=== PATIENT | female | born 1945 | race Caucasian/White ===

== ENCOUNTER 2016-10-13 12:26 | Inpatient (IN) | payer MEDICARE, BC ==
[~2016-10-13] VITALS: Ht 177.8 cm; Wt 52.0 kg
[2016-10-13] VITALS (8 sets, daily range): BP systolic 160–187; BP diastolic 74–89; PULSE 75–80; RESP 16–18; TEMP 97.2–97.9; O2SAT 95–98
[2016-10-13] MEDS ORDERED: SODIUM CHLORIDE 0.9% FLUSH 5 ML FLUSH IVF PRN ×2 (13:15→14:45)
[2016-10-13 13:28] LABS: AUTOMATED NEUTROPHIL # 5.8 TH/MM3 (1.8-7.7); BASOPHIL # 0.1 TH/MM3 (0-0.2); BASOPHIL % 0.9 % (0.0-2.0); EOSINOPHIL # 0.1 TH/MM3 (0-0.4); EOSINOPHIL % 0.6 % (0.0-4.0); HEMO FLAGS DIFF FINAL; LYMPH % 23.6 % (9.0-44.0); MEAN CORPUSCULAR HEMOGLOBIN 31.4 PG (27.0-34.0); MEAN CORPUSCULAR HGB CONC 33.8 % (32.0-36.0); MONO % 7.9 % (0.0-8.0); PLATELET COUNT 241 TH/MM3 (150-450); RED BLOOD COUNT 4.73 MIL/MM3 (4.00-5.30); WHITE BLOOD COUNT 8.6 TH/MM3 (4.0-11.0)
[2016-10-13 13:37] LABS: APTT (PATIENT) 28.7 SEC (24.3-30.1); INTERNATIONAL NORMALIZED RATIO 1.3 RATIO
[2016-10-13 13:44] LABS: ANION GAP 8 MEQ/L (5-15); BICARBONATE 24.8 MEQ/L (21.0-32.0); BLOOD UREA NITROGEN 13 MG/DL (7-18); CHLORIDE 107 MEQ/L (98-107); GLOMERULAR FILTRATION RATE 88 ML/MIN (>89); POTASSIUM 3.8 MEQ/L (3.5-5.1); SODIUM (NA) 140 MEQ/L (136-145)
[2016-10-13] MEDS ORDERED: TRAZ50TA12 PO (13:47)
--- NOTE | 2016-10-13 13:49 | PD ---
HPI Chief Complaint: Neuro Symptoms/ Deficits Time Seen by Provider: 13:12 Travel History International Travel<30 days: No Contact w/Intl Traveler<30days: [place] Traveled to: [place] Traveled to known affect area: No History of Present Illness HPI Patient is a 71-year-old female who presents the emergency department with complaint of weakness. Patient was apparently traveling on a cruise approximate 2 weeks ago with her sister when she had a "stroke". Patient states that she developed left arm weakness. She was seen by a physician on the cruise ship who did blood work and told her that she had a stroke. Patient does not describe having any neuro imaging. No medication adjustment was made. Patient states that her left upper extremity has been somewhat weak ever since her cruise. Apparently over the last day patient has had worsening left upper extremity weakness and now left lower extremity weakness which is new. Sister notes that patient is chronically on opioids for her back pain and believes patient may be taking too many of these. Patient denies doing so. PFSH Past Medical History Blood Disorders: No Anxiety: Yes Depression: Yes Cancer: No Cardiovascular Problems: Yes Cerebrovascular Accident: Yes Diabetes: No Diminished Hearing: No Endocrine: No Gastrointestinal Disorders: Yes GERD: Yes Genitourinary: No Hypertension: Yes Immune Disorder: No Implanted Vascular Access Dvce: Yes Musculoskeletal: Yes (chronic back pain ) Neurologic: Yes Psychiatric: Yes Reproductive: No Respiratory: No Immunizations Current: No ?: Not Menopausal: Yes : 0 Para: 0 Miscarriage: 0 : 0 Past Surgical History Abdominal Surgery: Yes (appendectomy) Gynecologic Surgery: Yes (hysterectomy) Hysterectomy: Yes Thoracic Surgery: Yes (Back and Neck surgery with Titanium Clarence placed) Other Surgery: Yes (MORPHINE PUMP IMPLANTED AND REMOVED) Social History Alcohol Use: No Tobacco Use: Yes Substance Use: No Allergies-Medications (Allergen,Severity, Reaction): Coded Allergies: No Known Allergies (Unverified , 10/13/16) Reported Meds & Prescriptions Reported Meds & Active Scripts Active Reported Trazodone (Trazodone HCl) 50 Mg Tab 50 Mg PO HS Review of Systems Except as stated in HPI: all other systems reviewed are Neg Physical Exam Narrative GENERAL: Elderly female in no acute distress SKIN: Warm and dry. HEAD: Normocephalic. EYES: Pupils equal and round. No scleral icterus. No injection or drainage. ENT: No nasal bleeding or discharge. Mucous membranes pink and moist. NECK: Supple CARDIOVASCULAR: Regular rate and rhythm. No murmur appreciated. RESPIRATORY: No accessory muscle use. Clear to auscultation. Breath sounds equal bilaterally. GASTROINTESTINAL: Abdomen soft, non-tender, nondistended. MUSCULOSKELETAL: No edema. NEUROLOGICAL: Awake and alert. Answers questions and follows commands appropriately. Questionable slight nasal labial fold flattening on the right. Otherwise cranial nerves intact. Neurologic examination with gross weakness throughout the extremities, 4+ out of 5 weakness in the right extremities and 4 out of 5 weakness in the left extremities. No ataxia noted, though exam is somewhat limited by her strength. Speech is slowed, but not slurred. PSYCH: Blunted mood and affect Data Data Last Documented VS Vital Signs Date Time Temp Pulse Resp B/P Pulse Ox O2 Delivery O2 Flow Rate FiO2 10/13/16 13:14 97 Room Air 10/13/16 13:02 75 16 187/74 10/13/16 12:33 97.9 Orders Electrocardiogram (10/13/16 13:13) Prothrombin Time / Inr (Pt) (10/13/16 13:13) Act Partial Throm Time (Ptt) (10/13/16 13:13) Complete Blood Count With Diff (10/13/16 13:13) Basic Metabolic Panel (Bmp) (10/13/16 13:13) Troponin I (10/13/16 13:13) Ecg Monitoring (10/13/16 13:13) Iv Access Insert/Monitor (10/13/16 13:13) Oximetry (10/13/16 13:13) Sodium Chloride 0.9% Flush (Ns Flush) (10/13/16 13:15) Ct Brain W/O Iv Contrast(Rout) (10/13/16 13:19) Alcohol (Ethanol) (10/13/16 13:42) Drug Screen, Random Urine (10/13/16 13:42) Aspirin (Aspirin) (10/13/16 14:30) Labs Laboratory Tests Test 10/13/16 10/13/16 10/13/16 13:18 13:19 13:59 White Blood Count 8.6 TH/MM3 Red Blood Count 4.73 MIL/MM3 Hemoglobin 14.9 GM/DL Hematocrit 44.0 % Mean Corpuscular Volume 93.0 FL Mean Corpuscular Hemoglobin 31.4 PG Mean Corpuscular Hemoglobin 33.8 % Concent Red Cell Distribution Width 14.0 % Platelet Count 241 TH/MM3 Mean Platelet Volume 8.9 FL Neutrophils (%) (Auto) 67.0 % Lymphocytes (%) (Auto) 23.6 % Monocytes (%) (Auto) 7.9 % Eosinophils (%) (Auto) 0.6 % Basophils (%) (Auto) 0.9 % Neutrophils # (Auto) 5.8 TH/MM3 Lymphocytes # (Auto) 2.0 TH/MM3 Monocytes # (Auto) 0.7 TH/MM3 Eosinophils # (Auto) 0.1 TH/MM3 Basophils # (Auto) 0.1 TH/MM3 CBC Comment DIFF FINAL Differential Comment Prothrombin Time 14.0 SEC Prothromb Time International 1.3 RATIO Ratio Activated Partial 28.7 SEC Thromboplast Time Sodium Level 140 MEQ/L Potassium Level 3.8 MEQ/L Chloride Level 107 MEQ/L Carbon Dioxide Level 24.8 MEQ/L Anion Gap 8 MEQ/L Blood Urea Nitrogen 13 MG/DL Creatinine 0.66 MG/DL Estimat Glomerular Filtration 88 ML/MIN Rate Random Glucose 91 MG/DL Calcium Level 9.9 MG/DL Troponin I LESS THAN 0.02 NG/ML Ethyl Alcohol Level LESS THAN 3 MG/DL Urine Opiates Screen NEG Urine Barbiturates Screen NEG Urine Amphetamines Screen NEG Urine Benzodiazepines Screen POS Urine Cocaine Screen NEG Urine Cannabinoids Screen NEG MDM Medical Decision Making Medical Screen Exam Complete: Yes Emergency Medical Condition: Yes Medical Record Reviewed: Yes Differential Diagnosis 71-year-old female with reported history of CVA while on a cruise 2 weeks ago with left upper extremity weakness here with 1 day of worsening left upper extremity weakness and new left lower extremity weakness. Differential includes CVA, TIA, substance abuse, opiate abuse, alcohol intoxication, seizure , electrolyte abnormality. Narrative Course Patient placed on monitor, IV established and blood obtained. Twelve-lead EKG shows sinus rhythm without notable ST abnormalities, normal intervals. Occasional PAC. CBC, BMP, troponin, coags, blood alcohol level and urine drug screen were obtained and notable for benzodiazepines. CT of the brain showed abnormalities in the right hemisphere with local right occipital lobe parafalcine parasagittal low-density and barr-white matter watershed right parietal occipital lobe. Findings consistent with interim infarct of indeterminate age. She was given aspirin, and neurology Dr. Hernandez consulted and patient will be admitted for further management. Given the onset of her worsening symptoms yesterday and recent CVI patient is not a candidate for thrombolysis. Critical Care Narrative Aggregate critical care time was 35 minutes. Time to perform other separately billable procedures was not included in the critical care time. My time did not include minutes spent treating any other patients simultaneously or on activities that did not directly contribute to the patient's treatment. The services I provided to this patient were to treat and/or prevent clinically significant deterioration that could result in: Neurologic decompensation, consideration of from lysis, , disability I provided critical care services requiring my management, as noted below: Chart data review, documentation time, medication orders and management, vital sign assessments/reviewing monitor data, ordering and reviewing lab tests, ordering and interpreting/reviewing x-rays and diagnostic studies, care of the patient and discussion of the patient with the admitting physicians. Diagnosis Primary Impression: CVA (cerebral vascular accident) Admitting Information Admitting Physician Requests: Admit Lucia Rodríguez MD Oct 13, 2016 13:49
--- NOTE | 2016-10-13 13:54 | RADRPT ---
EXAM DATE/TIME: 10/13/2016 13:44 [facility] COMPARISON: CT BRAIN W/O CONTRAST, October 19, 2015, 15:16. INDICATIONS : Headache and left sided weakness since early this morning. Stroke two weeks ago. RADIATION DOSE: 56.35 CTDIvol (mGy) MEDICAL HISTORY : Cerebrovascular disease. Hypertension. SURGICAL HISTORY : None. ENCOUNTER: Initial ACUITY: 1 day PAIN SCALE: 0/10 LOCATION: cranial TECHNIQUE: Multiple contiguous axial images were obtained of the head. Using automated exposure control and adjustment of the mA and/or kV according to patient size, radiation dose was kept as low as reasonably achievable to obtain optimal diagnostic quality images. FINDINGS: CEREBRUM: The ventricles are normal for age. No evidence of midline shift, mass lesion, hemorrha ge infarction. No extra-axial fluid collections are seen. Low density is noted in the right parasag ittal occipital lobe just above the tentorium and barr-white matter at the low right posterior pariet al occipital watershed without mass effect. POSTERIOR FOSSA: The cerebellum and brainstem are intact. The 4th ventricle is midline. The cer ebellopontine angle is unremarkable. EXTRACRANIAL: The visualized portion of the orbits is intact. SKULL: The calvaria is intact. No evidence of skull fracture. CONCLUSION: Abnormalities right hemisphere low right occipital lobe parafalcine parasagittal low density and ramires white matter watershed right parietal occipital lobe. Findings are consistent with i nterim infarct of indeterminate age Nabor Carbajal MD on October 13, 2016 at 13:50 Board Certified Radiologist. This report was verified electronically.
[2016-10-13 14:14] LABS: AMPHETAMINE, URINE NEG (NEG); BARBITURATES, URINE NEG (NEG); COCAINE, URINE NEG (NEG)
[2016-10-13] MEDS ORDERED: ASPIRIN 325 MG TAB PO ONE (14:30)
[2016-10-13] MEDS ORDERED: GLUCAGON 1 MG/ML VIAL IM/SQ PRN (14:45)
[2016-10-13] MEDS ORDERED: DEXTROSE 50% IN WATER 50 ML VIAL(D50) IV PUSH PRN (14:45)
[2016-10-13] MEDS ORDERED: ENALAPRILAT 1.25 MG/ML VIAL IV PRN (14:45)
--- NOTE | 2016-10-13 14:55 | HHI.HP ---
[facility] Service [facility] Primary Care Physician Yusuf Hummel MD Admission Diagnosis CVA Diagnoses: (1) CVA (cerebral vascular accident) Chief Complaint: Left lower extremity weakness Travel History International Travel<30 Days: No Contact w/Intl Traveler <30 Da: [place] Traveled to: [place] Traveled to Known Affected Are: No History of Present Illness 71-year-old female with a history of GERD, chronic back pain, chronic pain syndrome was brought to the ED for evaluation of left lower extremity weakness without any associated pain. Both 2 weeks ago patient was traveling on a cruise and had what was described as a stroke with left upper extremity weakness without any other focal deficits. She stated, only blood work were performed on a cruise and patient was diagnosed with a stroke however there was no radiographic studies done at the time and no medications were prescribed. But in the past 24-48 hours patient noticed worsening left upper extremity weakness along with now left lower extremity weakness which apparently is new for patient. She denies any chest pain, shortness of breath, stress speech, GI bleed. Review of Systems Other Other 12 system reviewed and are negative except for the one mentioned in history of present illness Past Family Social History Past Medical History GERD Anxiety: Yes Depression: Yes Cardiovascular Problems: Yes Cerebrovascular Accident: Yes Hypertension: Yes Implanted Vascular Access Dvce: Yes Musculoskeletal: Yes (chronic back pain ) She also has a history of alcohol use Past Surgical History Abdominal Surgery: Yes (appendectomy) Gynecologic Surgery: Yes (hysterectomy) Hysterectomy: Yes Thoracic Surgery: Yes (Back and Neck surgery with Titanium Clarence placed) Other Surgery: Yes (MORPHINE PUMP IMPLANTED AND REMOVED) Reported Medications Trazodone (Trazodone HCl) 50 Mg Tab 50 Mg PO HS Allergies: Coded Allergies: No Known Allergies (Unverified , 10/13/16) Family History Patient denies any family history of CVA, diabetes or heart disease. Social History Alcohol Use: No Tobacco Use: Yes Substance Use: No Physical Exam Vital Signs Vital Signs Date Time Temp Pulse Resp B/P Pulse Ox O2 Delivery O2 Flow Rate FiO2 10/13/16 14:35 76 16 160/75 98 Room Air 10/13/16 13:14 97 Room Air 10/13/16 13:02 75 16 187/74 97 Room Air 10/13/16 12:33 97.9 Physical Exam GENERAL: This is a well-nourished, well-developed patient, in no apparent distress. SKIN: No rashes, ecchymoses or lesions. Cool and dry. HEAD: Atraumatic. Normocephalic. No temporal or scalp tenderness. EYES: Pupils equal round and reactive. Extraocular motions intact. No scleral icterus. No injection or drainage. ENT: Nose without bleeding, purulent drainage or septal hematoma. Throat without erythema, tonsillar hypertrophy or exudate. Uvula midline. Airway patent. NECK: Trachea midline. No JVD or lymphadenopathy. Supple, nontender, no meningeal signs. CARDIOVASCULAR: Regular rate and rhythm without murmurs, gallops, or rubs. RESPIRATORY: Clear to auscultation. Breath sounds equal bilaterally. No wheezes , rales, or rhonchi. GASTROINTESTINAL: Abdomen soft, non-tender, nondistended. No hepato-splenomegaly , or palpable masses. No guarding. MUSCULOSKELETAL: Extremities without clubbing, cyanosis, or edema. 3/5 LLE, 2/5 LUE. Negative Homans sign bilaterally. NEUROLOGICAL: Awake and alert. Left-sided weakness Laboratory Laboratory Tests Test 10/13/16 10/13/16 10/13/16 13:18 13:19 13:59 White Blood Count 8.6 Red Blood Count 4.73 Hemoglobin 14.9 Hematocrit 44.0 Mean Corpuscular Volume 93.0 Mean Corpuscular Hemoglobin 31.4 Mean Corpuscular Hemoglobin 33.8 Concent Red Cell Distribution Width 14.0 Platelet Count 241 Mean Platelet Volume 8.9 Neutrophils (%) (Auto) 67.0 Lymphocytes (%) (Auto) 23.6 Monocytes (%) (Auto) 7.9 Eosinophils (%) (Auto) 0.6 Basophils (%) (Auto) 0.9 Neutrophils # (Auto) 5.8 Lymphocytes # (Auto) 2.0 Monocytes # (Auto) 0.7 Eosinophils # (Auto) 0.1 Basophils # (Auto) 0.1 CBC Comment DIFF FINAL Differential Comment Prothrombin Time 14.0 Prothromb Time International 1.3 Ratio Activated Partial 28.7 Thromboplast Time Sodium Level 140 Potassium Level 3.8 Chloride Level 107 Carbon Dioxide Level 24.8 Anion Gap 8 Blood Urea Nitrogen 13 Creatinine 0.66 Estimat Glomerular Filtration 88 Rate Random Glucose 91 Calcium Level 9.9 Troponin I LESS THAN 0.02 Ethyl Alcohol Level LESS THAN 3 Urine Opiates Screen NEG Urine Barbiturates Screen NEG Urine Amphetamines Screen NEG Urine Benzodiazepines Screen POS Urine Cocaine Screen NEG Urine Cannabinoids Screen NEG Result Diagram: 10/13/16 1318 10/13/16 1319 Imaging Last Impressions Head CT 10/13/16 1319 Signed Impressions: Service Date/Time: Thursday, October 13, 2016 13:44 - CONCLUSION: Abnormalities right hemisphere low right occipital lobe parafalcine parasagittal low density and ramires white matter watershed right parietal occipital lobe. Findings are consistent with interim infarct of indeterminate age Nabor Carbajal MD Assessment and Plan Problem List: (1) CVA (cerebral vascular accident) ICD Code: I63.9 Status: Acute (2) Chronic pain ICD Code: G89.29 Status: Chronic Assessment and Plan 71-year-old female with Acute CVA: Treatment per stroke protocol -Continue with aspirin -Start statin therapy after LFTs monitored -NIHSS, Neuro checks, Monitor on telemetry -PT/OT/ST evaluations, consult rehab medicine -allow permissive HTN, IV Vasotec and IV labetalol if SBP >220 -Check lipid profile and HgbA1c -Check carotid U/S -Head CT 10/13/16 noted and review by me with the finding of Abnormalities right hemisphere low right occipital lobe parafalcine parasagittal low density and ramires white matter watershed right parietal occipital lobe. Findings are consistent with interim infarct of indeterminate age -Check brain MRI/MRA -Check echocardiogram -Neurology consulted History of hypertension: We will allow for permissive hypertension DVT prophylaxis: Bilateral SCDs Code Status DO NOT RESUSCITATE Discussed Condition With Patient, ED physician Physician Certification 2 Midnight Certification Type: Admission for Inpatient Services Order for Inpatient Services The services are ordered in accordance with Medicare regulations or non- Medicare payer requirements, as applicable. In the case of services not specified as inpatient-only, they are appropriately provided as inpatient services in accordance with the 2-midnight benchmark. Estimated LOS (days): 2 days is the estimated time the patient will need to remain in the hospital, assuming treatment plan goals are met and no additional complications. Post-Hospital Plan: Not yet determined Problem Qualifiers (1) CVA (cerebral vascular accident): Greysno Davis MD Oct 13, 2016 14:55
[2016-10-13] MEDS: INSULIN ASPART SUPPLEMENTAL SCALE SQ SCH ×2 (16:00→21:00)
--- NOTE | 2016-10-13 17:03 | RADRPT ---
EXAM DATE/TIME: 10/13/2016 15:39 [facility] COMPARISON: MRI BRAIN W/O CONTRAST, October 13, 2016, 15:39. INDICATIONS : Left sided weakness. MEDICAL HISTORY : Stroke SURGICAL HISTORY : Fusion, lumbar. ENCOUNTER: Initial ACUITY: 2 day PAIN SCORE: 0/10 LOCATION: Head Please note a normal MRA of the brain does not entirely exclude the possibility of a small aneurysm, nor the possibility of distal intracranial vessel disease. TECHNIQUE: 3D time of flight MRA was performed. Source images, multiplanar STS MIP, and 3D volume MIP reconstru ctions were reviewed. FINDINGS: There is excellent visualization of the major intracranial arteries out to the second-order branch ve ssels. There is lack of signal throughout the ICA on the right. The lack of signal is seen from the s kull base to the supraclinoid portion. There is signal observed within the A1 and M1 segments. The le ft carotid is patent. There is lack of signal involving the posterior cerebral artery on the right. T he anterior cerebral and middle cerebral territories show normal signal. No aneurysms. CONCLUSION: 1. Lack of signal involving the right ICA as well as the right posterior cerebral artery suggesting e ither complete occlusion or extremely high grade stenosis with poor flow. Archie Ramirez Jr., MD on October 13, 2016 at 16:57 Board Certified Radiologist. This report was verified electronically.
--- NOTE | 2016-10-13 17:08 | RADRPT ---
EXAM DATE/TIME: 10/13/2016 15:39 [facility] COMPARISON: CT BRAIN W/O CONTRAST, October 13, 2016, 13:44. INDICATIONS : Left sided weakness. MEDICAL HISTORY : Stroke SURGICAL HISTORY : Fusion, lumbar. ENCOUNTER: Initial ACUITY: 1 day PAIN SCORE: 0/10 LOCATION: Head TECHNIQUE: Multiplanar, multisequence MRI of the brain was performed without contrast. FINDINGS: Abnormal signal including restricted diffusion is seen involving the right parietal lobe with a small er area involving the right occipital lobe. These areas involve the cortex and immediate subcortical white matter. Abnormal T2 signal is seen on hippocampus on the right with only one week restricted di ffusion. Periventricular high T2 signal abnormality scattered throughout both cerebral hemispheres. T iny foci of blooming artifact involving the right parietal lobe infarction suggests some venous clot. No large volume hemorrhage is atrophy is noted. Ventricles are normal in size. Signal is seen within the right ICA. Normal flow-voids are seen within the right ICA and major intracranial vessels and si nuses and mastoid air cells are clear. CONCLUSION: 1. Acute multifocal infarction involving the right parietal lobe, right occipital lobe, and right tem poral lobe. There is signal noted within the right ICA suggesting occlusion of that vessel. See MRA r eported separately. 2. Small foci of blood product scattered throughout the right parietal lobe infarction. No large volu me hemorrhage observe. Archie Ramirez Jr., MD on October 13, 2016 at 17:01 Board Certified Radiologist. This report was verified electronically.
--- NOTE | 2016-10-13 17:58 | RADRPT ---
EXAM DATE/TIME: 10/13/2016 16:05 [facility] COMPARISON: MRA BRAIN W/O CONTRAST, October 13, 2016, 15:39. MRI BRAIN W/O CONTRAST, October 13, 2016, 15:39. INDICATIONS : Cerebrovascular accident. MEDICAL HISTORY : Myocardial infarction. Gastroesophageal reflux disease. Cerebrovascular accident. Dyspnea. SURGICAL HISTORY : Appendectomy. Hysterectomy. Back and neck surgery. Neurotransmitter implantation and removal. Morph ine pump implantation and removal. ENCOUNTER: Initial ACUITY: 2 weeks PAIN SCORE: 0/10 LOCATION: Bilateral neck PEAK SYSTOLIC VELOCITIES (cm/sec): ICA/CCA RATIO: Right: 2.2 Left: 1.7 ICA: Right: 54 Left: 105 CCA: Right: 25 Left: 63 ECA: Right: 68 Left: 0 VERTEBRAL: Right: 44 antegrade Left: 29 antegrade Elevated flow velocities and ICA/CCA ratios have been found to correlate with increased degrees of vessel stenosis, calculated as percentage of diameter relative to a normal segment of distal ICA/CCA FINDINGS: Bilateral vertebral arteries reveal antegrade flow. Left carotid is normal. Right carotid reveals ext ensive plaquing at the initial segment of the internal carotid with diminished velocities in the hansen tid on the right. Findings suggest high grade stenosis and decreased flow versus complete occlusion. This could best be further evaluated with CTA of the carotids CONCLUSION: Markedly abnormal atherosclerotic changes distal segment of the right internal carotid suggesting hig h grade or complete stenosis. Further evaluation with CTA of the carotids is recommended particularly in view of the abnormality on today's MRA of the brain.. Nabor Carbajal MD on October 13, 2016 at 17:52 Board Certified Radiologist. This report was verified electronically.
[2016-10-13] MEDS ORDERED: ONDANSETRON HCL 4 MG/2 ML VIAL IV PRN (18:15)
[2016-10-13] MEDS ORDERED: DOCUSATE SODIUM 50 MG/SENNA 8.6 MG TAB PO PRN (18:15)
[2016-10-13] MEDS ORDERED: ACETAMINOPHEN 325 MG TAB PO PRN (18:15)
[2016-10-13] MEDS ORDERED: RESP: ALBUTEROL 2.5 MG/IPRATROPIUM 0.5 MG NEB (PRN) NEB (18:15)
[2016-10-13] MEDS: SODIUM CHLORIDE 0.9% FLUSH 5 ML FLUSH IVF SCH (21:06)
[2016-10-13] MEDS: SODIUM CHLOR 0.9% 1000 ML INJ 1,000 ML IV SCH (23:00)
[2016-10-14] VITALS (8 sets, daily range): BP systolic 129–171; BP diastolic 59–81; PULSE 68–81; RESP 16–20; TEMP 96.6–98.5; O2SAT 97–99
[2016-10-14] MEDS: INSULIN ASPART SUPPLEMENTAL SCALE SQ SCH ×4 (06:31→21:00)
[2016-10-14] MEDS: SODIUM CHLORIDE 0.9% FLUSH 5 ML FLUSH IVF SCH ×2 (08:33→21:00)
[2016-10-14] MEDS: PANTOPRAZOLE SODIUM 40 MG VIAL IV PUSH SCH (08:33)
[2016-10-14] MEDS: ASPIRIN 325 MG TAB PO SCH (08:34)
[2016-10-14] MEDS: SODIUM CHLOR 0.9% 1000 ML INJ 1,000 ML IV SCH (08:35)
[2016-10-14 09:28] LABS: BLOOD UREA NITROGEN 18 MG/DL (7-18)
[2016-10-14 09:29] LABS: ALKALINE PHOSPHATASE 78 U/L (45-117); ALT (GPT) 25 U/L (10-53); ANION GAP 14 MEQ/L (5-15); AST (GOT) 31 U/L (15-37); BICARBONATE 21.5 MEQ/L (21.0-32.0); CHLORIDE 105 MEQ/L (98-107); GLOMERULAR FILTRATION RATE 95 ML/MIN (>89); HDL CHOLESTEROL 49.6 MG/DL (40.0-60.0); LDL CHOLESTEROL 74 MG/DL (0-99); POTASSIUM 3.8 MEQ/L (3.5-5.1); SODIUM (NA) 140 MEQ/L (136-145); TOTAL BILIRUBIN ADULT 0.9 MG/DL (0.2-1.0)
--- NOTE | 2016-10-14 10:16 | MB ---
cc: SVEN CARABALLO MD DATE OF CONSULTATION: 10/14/2016 REASON FOR CONSULTATION Stroke. HISTORY OF PRESENT ILLNESS This is a 71-year-old female with a history of GERD, chronic back pain and chronic pain syndrome who presented to the emergency room at [facility] hospital for evaluation of a left lower extremity weakness without any associated pain or trauma. She states that two weeks ago she traveled to on a cruise and she described what the diagnosis of a stroke and they did for her blood work and she was diagnosed with a stroke in the left upper extremity. She denies any imaging only blood work was done. No medical records are available. In the last [id number] days prior to presentation to the hospital, she noticed worsening left upper extremity with the lower extremity. She denies any headache, double vision, blurred vision, numbness of the face, slurring of speech or speech difficulty, seizures or disorientation. REVIEW OF SYSTEMS A 12-point review of systems is negative except for what is stated in the HPI. PAST MEDICAL HISTORY 1. GERD. 2. Anxiety. PAST SURGICAL HISTORY 1. Appendectomy. 2. Hysterectomy. 3. Thoracic surgery titanium jose m plate placed. 4. Morphine pump implanted but removed. MEDICATIONS Trazodone. ALLERGIES NO KNOWN ALLERGIES. FAMILY HISTORY Noncontributory. SOCIAL HISTORY The patient denies use of alcohol or recreational drugs but excessively smokes tobacco. PHYSICAL EXAMINATION GENERAL: Well-nourished and in no acute distress, good historian. HEENT: Atraumatic, normocephalic. Intact vision. Intact hearing. NECK: No carotid bruits. Supple neck. No meningeal sign. CARDIOVASCULAR: Regular rate and rhythm without murmurs. RESPIRATORY: Clear to auscultation. No wheezes. MUSCULOSKELETAL: Without clubbing, cyanosis or edema. NEUROLOGIC: Awake, alert, oriented to time, person and place. Intact speech. Intact speech content. Cranial nerves are grossly intact. Motor system: Right side 5/5 bedside, 4- shoulder abduction, elbow extension and wrist extension on the left side, 3/5 hip flexion, knee extension, 4-/5 foot dorsiflexion. Reflexes: 2+ bilateral, symmetrical. Plantars bilaterally downgoing. Sensation is intact throughout. Cerebellar signs are intact, [id number], [id number]. PSYCHOLOGICAL: Mood and behavior and normal judgment. LABORATORY DATA White blood cells 8.6, hemoglobin 14.9, platelets 241. INR 1.3. Sodium 140, potassium 3.8, carbon dioxide 24.8, anion gap 8, BUN 13, creatinine 0.66, random glucose 91, calcium 9.9, troponin less than 0.42. Urine tox is negative. DIAGNOSTIC IMAGING STUDIES CT scan of the head without contrast revealed abnormalities in the right hemisphere, low right occipital lobe, parafalcine, parasagittal low density and ramires-white matter watershed right parietal occipital lobe. Findings consistent with interim infarction of indeterminate age. Brain MRI without contrast revealed acute multifocal infarction involving the right parietal lobe, right occipital lobe and right temporal lobe. There is signal noted within the right ICA suggesting occlusion of that vessel. Small foci of blood product scattered through the right parietal lobe infarction. No large volume hemorrhage observed. Head MRA without contrast reveals lack of signal involving the right ICA as well as the right posterior cerebral artery suggesting either complete occlusion or extremely high grade stenosis with poor flow. Carotid ultrasound revealed markedly abnormal atherosclerotic changes distal segment of the right ICA suggesting high grade or complete stenosis. DIAGNOSTIC IMPRESSION 1. Ischemic stroke right cerebral hemisphere multifocal. 2. Possible etiology is right ICA narrowing/stenosis. PLAN 1. Neuro checks q.4 hourly. 2. Aspirin 325 mg daily. 3. PT, OT recommendations are appreciated. 4. CTA neck. 5. Consider vascular surgery consult Dr. Barry. 6. DVT prophylaxis. 7. GI prophylaxis. Thank you for the opportunity to participate in the care of your patient. MD MOMO Horta/BJF /7:47 AM /9:08 AM
--- NOTE | 2016-10-14 10:57 | HHI.PR ---
Subjective Remarks Follow-up CVA 10/14/16-patient seen and examined; complains of back pain. Patient with abnormal carotid SHOWING RIGHT ICA HIGH-GRADE OR COMPLETE STENOSIS Objective Vitals Vital Signs Date Time Temp Pulse Resp B/P Pulse Ox O2 Delivery O2 Flow Rate FiO2 10/14/16 08:00 96.6 71 18 153/66 97 10/14/16 04:00 97.4 79 19 157/71 98 10/14/16 00:24 97.0 68 20 171/81 97 10/13/16 21:00 75 10/13/16 20:25 97.2 80 18 184/80 98 10/13/16 16:31 78 16 164/89 97 Room Air 10/13/16 15:01 95 21 10/13/16 14:35 76 16 160/75 98 Room Air 10/13/16 13:14 97 Room Air 10/13/16 13:02 75 16 187/74 97 Room Air 10/13/16 12:33 97.9 Result Diagram: 10/13/16 1318 10/14/16 0827 Imaging Last Impressions Head CT 10/13/16 1319 Signed Impressions: Service Date/Time: Thursday, October 13, 2016 13:44 - CONCLUSION: Abnormalities right hemisphere low right occipital lobe parafalcine parasagittal low density and ramires white matter watershed right parietal occipital lobe. Findings are consistent with interim infarct of indeterminate age Nabor Carbajal MD Head Magnetic Resonance Angiography 10/13/16 0000 Signed Impressions: Service Date/Time: Thursday, October 13, 2016 15:39 - CONCLUSION: 1. Lack of signal involving the right ICA as well as the right posterior cerebral artery suggesting either complete occlusion or extremely high grade stenosis with poor flow. Archie Ramirez Jr., MD Carotid Artery Ultrasound 10/13/16 0000 Signed Impressions: Service Date/Time: Thursday, October 13, 2016 16:05 - CONCLUSION: Markedly abnormal atherosclerotic changes distal segment of the right internal carotid suggesting high grade or complete stenosis. Further evaluation with CTA of the carotids is recommended particularly in view of the abnormality on today's MRA of the brain.. Nabor Carbajal MD Brain MRI 10/13/16 0000 Signed Impressions: Service Date/Time: Thursday, October 13, 2016 15:39 - CONCLUSION: 1. Acute multifocal infarction involving the right parietal lobe, right occipital lobe, and right temporal lobe. There is signal noted within the right ICA suggesting occlusion of that vessel. See MRA reported separately. 2. Small foci of blood product scattered throughout the right parietal lobe infarction. No large volume hemorrhage observe. Archie Ramirez Jr., MD Objective Remarks GENERAL: NAD SKIN: Warm and dry. HEAD: Normocephalic. EYES: No scleral icterus. No injection or drainage. NECK: Supple, trachea midline. No JVD or lymphadenopathy. CARDIOVASCULAR: Regular rate and rhythm without murmurs, gallops, or rubs. RESPIRATORY: Breath sounds equal bilaterally. No accessory muscle use. GASTROINTESTINAL: Abdomen soft, non-tender, nondistended. MUSCULOSKELETAL: No cyanosis, or edema. Neuro: Left-sided weakness BACK: Nontender without obvious deformity. No CVA tenderness. A/P Problem List: (1) CVA (cerebral vascular accident) ICD Code: I63.9 Status: Acute (2) Chronic pain ICD Code: G89.29 Status: Chronic (3) Carotid stenosis, right ICD Code: I65.21 Status: Acute Assessment and Plan 71-year-old female with Acute CVA: Treatment per stroke protocol -Continue with aspirin -Start statin therapy -NIHSS, Neuro checks, Monitor on telemetry -PT/OT/ST evaluations, consult rehab medicine -Continue permissive HTN, IV Vasotec and IV labetalol if SBP >220 - HgbA1c pending -carotid U/S with right ICA high-grade or complete stenosis for which vascular surgery will be consulted pending neck CTA -Head CT 10/13/16 noted and review by me with the finding of Abnormalities right hemisphere low right occipital lobe parafalcine parasagittal low density and ramires white matter watershed right parietal occipital lobe. Findings are consistent with interim infarct of indeterminate age - brain MRI/MRA noted and reviewed by me - echocardiogram pending -Neurology consulted and appreciate input History of hypertension: Continue permissive hypertension Right ICA high-grade stenosis: Will consult vascular surgery for evaluation for possible endarterectomy pending neck CTA DVT prophylaxis: Bilateral SCDs Problem Qualifiers (1) CVA (cerebral vascular accident): Greyson Davis MD Oct 14, 2016 10:57
[2016-10-14] MEDS: ACETAMINOPHEN 325 MG TAB PO PRN ×3 (11:26→20:57)
--- NOTE | 2016-10-14 13:55 | EKG ---
Date Performed: 10/13/2016 Time Performed: 13:10:49 PTAGE: 71 years EKG: Sinus rhythm WITH OCCASIONAL SUPRAVENTRICULAR PREMATURE COMPLEXES NONSPECIFIC T-WAVE ABNORMALITY Compared to prev ious tracing, the patient has developed lateral T wave changes possibly consistent with myocardial is chemia. Clinical correlation advised. BORDERLINE ECG PREVIOUS TRACING : 10/19/2015 14.01 DOCTOR: Doreen Persaud Interpretating Date/Time 10/14/2016 13:54:05
--- NOTE | 2016-10-14 15:09 | EC ---
Study Study Date:10/14/2016 STUDY CONCLUSIONS SUMMARY - Left ventricle: The cavity size was normal. Wall thickness was normal. Systolic function was normal. The estimated ejection fraction was in the range of 55% to 60%. Wall motion was normal; there were no regional wall motion abnormalities. - Mitral valve: Mild regurgitation. - Tricuspid valve: Mild regurgitation. If LV function is below 40, please consider prescribing an ACEI or ARB or document rationale for non-use. PROCEDURE DATA STUDY STATUS: Elective. Procedure: Transthoracic echocardiography. Image quality was good. Scanning was performed from the parasternal, apical, and subcostal acoustic windows. Study completion: The patient tolerated the procedure well. Transthoracic echocardiography. M-mode, complete 2D, complete spectral Doppler, and color Doppler. Patient status: Inpatient. CARDIAC ANATOMY LEFT VENTRICLE: The cavity size was normal. Wall thickness was normal. Systolic function was normal. The estimated ejection fraction was in the range of 55% to 60%. Wall motion was normal; there were no regional wall motion abnormalities. AORTIC VALVE: Trileaflet; normal thickness leaflets. Doppler: Transvalvular velocity was within the normal range. There was no stenosis. No regurgitation. AORTA: Aortic root: The aortic root was normal in size. MITRAL VALVE: Structurally normal valve. Doppler: Transvalvular velocity was within the normal range. There was no evidence for stenosis. Mild regurgitation. LEFT ATRIUM: The atrium was normal in size. RIGHT VENTRICLE: The cavity size was normal. Wall thickness was normal. PULMONIC VALVE: Doppler: Transvalvular velocity was within the normal range. There was no evidence for stenosis. No regurgitation. TRICUSPID VALVE: Structurally normal valve. Doppler: Transvalvular velocity was within the normal range. Mild regurgitation. PULMONARY ARTERY: The main pulmonary artery was normal-sized. Systolic pressure was within the normal range. RIGHT ATRIUM: The atrium was normal in size. PERICARDIUM: There was no pericardial effusion. SYSTEMIC VEINS: Inferior vena cava: The vessel was normal in size. BASIC MEASUREMENTS ADULT Normal Left ventricle LV internal dimension, ED, chordal level, *35.8 mm 43-52 PLAX LV internal dimension, ES, chordal level, 25.4 mm 23-38 PLAX Fractional shortening, chordal level, PLAX *29 % >29 LV posterior wall thickness, ED 9.78 mm IVS/LVPW ratio, ED *1.43 <1.3 Ventricular septum Septal thickness, ED 14 mm Aortic valve Leaflet separation 19 mm 15-26 Right ventricle RV internal dimension, ED, PLAX 22.1 mm 19-38 BASIC MEASUREMENTS ADULT Normal Aortic valve Leaflet separation 19 mm 15-26 Aorta Root diameter, ED 30 mm 20-37 Left atrium Anterior-posterior dimension, ES 30 mm 19-40 LA/aortic root ratio 1 DOPPLER MEASUREMENTS ADULT Normal Main pulmonary artery Pressure, S 30 mm Hg =30 Mitral valve Peak E-wave velocity 50.3 cm/s Peak A-wave velocity 55.8 cm/s Peak E/A ratio 0.9 Tricuspid valve Regurgitant peak velocity 223 cm/s Peak RV-RA gradient, S 20 mm Hg Maximal regurgitant velocity 223 cm/s Systemic veins Estimated CVP 10 mm Hg Right ventricle RV pressure, S *30 mm Hg <30 LEGEND: Mean values are shown as u=mean value. Asterisk (*) brown values outside specified normal range. Prepared and signed by Martin Robert [id number]
[2016-10-14] MEDS ORDERED: IOHEXOL 350 MG/ML 10 ML VIAL (for RAD DIAG) IV ONE (16:03)
--- NOTE | 2016-10-14 16:42 | RADRPT ---
EXAM DATE/TIME: 10/14/2016 15:55 [facility] COMPARISON: US CAROTID ARTERIES, October 13, 2016, 16:05. INDICATIONS : Evaluate for occlusion. IV CONTRAST: 75 cc Omnipaque 350 (iohexol) IV RADIATION DOSE: 28.03 CTDIvol (mGy) MEDICAL HISTORY : Cerebrovascular disease. Hypertension. SURGICAL HISTORY : Neck and back rods. ENCOUNTER: Initial ACUITY: 1 day PAIN SCALE: 4/10 LOCATION: Bilateral neck TECHNIQUE: Volumetric scanning was performed using a multirow detector CT scanner. The data was post processed with a variety of visualization algorithms including full-volume maximum intensity projection, multip lanar sliding thin-slab reformation, curved-planar reformation, and surface-rendering techniques. Us ing automated exposure control and adjustment of the mA and/or kV according to patient size, radiatio n dose was kept as low as reasonably achievable to obtain optimal diagnostic quality images. FINDINGS: AORTIC ARCH: There is a three-vessel origin of the great vessels from the aorta. No evidence of ostial narrowing. RIGHT CAROTID: Right CCA is normal. There is severe atherosclerotic plaque at the bifurcation and completely occlude d right internal carotid artery. The vessel has slight reconstitution at the level of the skull base but remains extremely diminutive into the [place] of [place]. Intracranial, there is a well visualized, patent anterior communicating artery and with decent filling of both the right middle and anterior c irculation. No significant posterior communicating demonstrated on either side but the vertebrobasila r system appears normal. There is moderate stenosis of the right external carotid artery at the origi n. LEFT CAROTID: The left common carotid artery is normal. There is moderate plaque of the left bifurcation and 2 cm l jeana, less than 25% narrowing of the left internal carotid artery. VERTEBRALS: Patent and bilaterally codominant. CONCLUSION: 1. Severe right carotid bifurcation atherosclerotic plaque. The proximal right ICA is occluded, presu mably nonacute. 2. Moderate left carotid bifurcation atherosclerotic plaque with low-grade, non-hemodynamically signi ficant narrowing of the proximal left ICA. 3. Patent, codominant vertebral arteries. Robert Pereira MD on October 14, 2016 at 16:35 Board Certified Radiologist. This report was verified electronically.
[2016-10-14] MEDS: ATORVASTATIN 10 MG TAB PO SCH (20:56)
[2016-10-15] VITALS (12 sets, daily range): BP systolic 130–168; BP diastolic 54–88; PULSE 71–84; RESP 16–18; TEMP 96.7–98.1; O2SAT 94–98
[2016-10-15] MEDS: INSULIN ASPART SUPPLEMENTAL SCALE SQ SCH ×4 (05:58→21:00)
[2016-10-15] MEDS: ACETAMINOPHEN 325 MG TAB PO PRN ×3 (06:42→16:00)
[2016-10-15] MEDS: SODIUM CHLORIDE 0.9% FLUSH 5 ML FLUSH IVF SCH ×2 (09:00→21:07)
[2016-10-15] MEDS: ASPIRIN 325 MG TAB PO SCH (09:42)
[2016-10-15] MEDS: PANTOPRAZOLE SODIUM 40 MG VIAL IV PUSH SCH (09:43)
--- NOTE | 2016-10-15 09:43 | HHI.PR ---
Subjective Remarks Follow-up CVA 10/14/16-patient seen and examined; complains of back pain. Patient with abnormal carotid SHOWING RIGHT ICA HIGH-GRADE OR COMPLETE STENOSIS 10/15/16-patient seen and examined, report improvement of left lower extremity weakness. Still complain of back pain. Neck CTA with significant right ICA occlusion Objective Vitals Vital Signs Date Time Temp Pulse Resp B/P Pulse Ox O2 Delivery O2 Flow Rate FiO2 10/15/16 08:54 96 21 10/15/16 08:33 96.7 73 18 144/69 98 10/15/16 07:00 80 10/15/16 05:20 97.9 80 17 145/69 98 10/15/16 04:24 96 21 10/15/16 00:30 98.1 74 17 168/88 97 10/15/16 00:00 97.1 84 18 138/80 97 10/14/16 21:57 18 10/14/16 20:40 98.5 76 16 130/59 97 10/14/16 18:04 99 21 10/14/16 16:00 97.2 81 18 129/60 99 10/14/16 12:00 97.5 81 18 139/66 98 10/14/16 11:36 99 21 I/O 10/14/16 10/14/16 10/14/16 10/15/16 10/15/16 10/15/16 07:00 15:00 23:00 07:00 15:00 23:00 Intake Total 240 ml 750 ml 500 ml Output Total 0 ml Balance 240 ml 750 ml 500 ml Intake Oral 240 ml 750 ml 500 ml Output Urine Total 0 ml # Voids 1 2 0 # Bowel Movements 0 0 Result Diagram: 10/13/16 1318 10/14/16 0827 Imaging Last Impressions Neck CTA 10/14/16 0000 Signed Impressions: Service Date/Time: Friday, October 14, 2016 15:55 - CONCLUSION: 1. Severe right carotid bifurcation atherosclerotic plaque. The proximal right ICA is occluded, presumably nonacute. 2. Moderate left carotid bifurcation atherosclerotic plaque with low-grade, non-hemodynamically significant narrowing of the proximal left ICA. 3. Patent, codominant vertebral arteries. Robert Pereira MD Head CT 10/13/16 1319 Signed Impressions: Service Date/Time: Thursday, October 13, 2016 13:44 - CONCLUSION: Abnormalities right hemisphere low right occipital lobe parafalcine parasagittal low density and ramires white matter watershed right parietal occipital lobe. Findings are consistent with interim infarct of indeterminate age Nabor Carbajal MD Head Magnetic Resonance Angiography 10/13/16 0000 Signed Impressions: Service Date/Time: Thursday, October 13, 2016 15:39 - CONCLUSION: 1. Lack of signal involving the right ICA as well as the right posterior cerebral artery suggesting either complete occlusion or extremely high grade stenosis with poor flow. Archie Ramirez Jr., MD Carotid Artery Ultrasound 10/13/16 Signed Impressions: Service Date/Time: Thursday, October 13, 2016 16:05 - CONCLUSION: Markedly abnormal atherosclerotic changes distal segment of the right internal carotid suggesting high grade or complete stenosis. Further evaluation with CTA of the carotids is recommended particularly in view of the abnormality on today's MRA of the brain.. Nabor Carbajal MD Brain MRI 10/13/16 Signed Impressions: Service Date/Time: Thursday, October 13, 2016 15:39 - CONCLUSION: 1. Acute multifocal infarction involving the right parietal lobe, right occipital lobe, and right temporal lobe. There is signal noted within the right ICA suggesting occlusion of that vessel. See MRA reported separately. 2. Small foci of blood product scattered throughout the right parietal lobe infarction. No large volume hemorrhage observe. Archie Ramirez Jr., MD Objective Remarks GENERAL: NAD SKIN: Warm and dry. HEAD: Normocephalic. EYES: No scleral icterus. No injection or drainage. NECK: Supple, trachea midline. No JVD or lymphadenopathy. CARDIOVASCULAR: Regular rate and rhythm without murmurs, gallops, or rubs. RESPIRATORY: Breath sounds equal bilaterally. No accessory muscle use. GASTROINTESTINAL: Abdomen soft, non-tender, nondistended. MUSCULOSKELETAL: No cyanosis, or edema. Neuro: Left-sided weakness BACK: Nontender without obvious deformity. No CVA tenderness. A/P Problem List: (1) CVA (cerebral vascular accident) ICD Code: I63.9 Status: Acute (2) Chronic pain ICD Code: G89.29 Status: Chronic (3) Carotid stenosis, right ICD Code: I65.21 Status: Acute Assessment and Plan 71-year-old female with Acute CVA: Treatment per stroke protocol -Continue with aspirin -Continue statin therapy -NIHSS, Neuro checks, Monitor on telemetry -PT/OT/ST evaluations, consult rehab medicine -Continue permissive HTN, IV Vasotec and IV labetalol if SBP >220 - HgbA1c pending -carotid U/S with right ICA high-grade or complete stenosis; neck CTA with Severe right carotid bifurcation atherosclerotic -Head CT 10/13/16 noted and review by me with the finding of Abnormalities right hemisphere low right occipital lobe parafalcine parasagittal low density and ramires white matter watershed right parietal occipital lobe. Findings are consistent with interim infarct of indeterminate age - brain MRI/MRA noted and reviewed by me - echocardiogram with EF of 55-60% -Neurology consulted and appreciate input History of hypertension: Continue permissive hypertension Right ICA high-grade stenosis: Neck CTA with finding of Severe right carotid bifurcation atherosclerotic, therefore will consult vascular surgery 10/15/16 for evaluation for possible endarterectomy DVT prophylaxis: Bilateral SCDs Problem Qualifiers (1) CVA (cerebral vascular accident): Greyson Davis MD Oct 15, 2016 09:43
--- NOTE | 2016-10-15 16:11 | PD.VS.CON ---
History of Present Illness Chief Complaint: left arm and leg weakness . Consult Requested by: Neurology Neurology History of Present Illness This is a 71 year old female who was on a cruise 6 weeks ago who awakened to left arm weakness. She had a progression to left leg weakness and recovering left arm weakness. She denies specific A. fugax but complains of bilateral visual haziness since the event. She denies expressive aphasia. She denies chest pain or shortness of breath. Past/Family/Social History Past Medical History GERD Depression Anxiety Past Surgical History Appendectomy Hysterectomy Spine surgery Social History Alcohol Family History Denies CVA, CAD Home Medications Reported Medications Trazodone 50 Mg Tab50 Mg PO HS #30 TAB Ref 0 10/13/16 Coded Allergies: No Known Allergies (Unverified , 10/13/16) Review of Systems Musculoskeletal: COMPLAINS OF: Joint pain, Muscle aches (chronic back pain), Joint Swelling, Back pain, Neck pain Neurologic: COMPLAINS OF: Abnormal gait (left sided weakness), Headache, Localized weakness, Paresthesias, Seizures, Speech Problems, Tremor, Poor Balance Physical Exam Vitals/I&O Date Time Temp Pulse Resp B/P Pulse Ox O2 Delivery O2 Flow Rate FiO2 10/15/16 12:00 97.7 75 18 157/54 97 10/15/16 08:54 96 21 10/15/16 08:33 96.7 73 18 144/69 98 10/15/16 07:00 80 10/15/16 05:20 97.9 80 17 145/69 98 10/15/16 04:24 96 21 10/15/16 00:30 98.1 74 17 168/88 97 10/15/16 00:00 97.1 84 18 138/80 97 10/14/16 21:57 18 10/14/16 20:40 98.5 76 16 130/59 97 10/14/16 18:04 99 21 10/15/16 10/15/16 10/15/16 07:00 15:00 23:00 Intake Total 500 ml Output Total 0 ml Balance 500 ml Neuro: CN2-12 intact Left arm 4/5, left leg 4/5 HEENT: trachea midline Neck: No carotid bruits, neck supple Heart: Regular rhythm, no murmurs Lungs: CTA bilaterally Abdomen: soft, nondistended, no abdominal bruits Vascular: palpable radial and pedal pulses bilaterally. Extremities: warm. Last 48 hours Impressions Neck CTA 10/14/16 0000 Signed Impressions: Service Date/Time: Friday, October 14, 2016 15:55 - CONCLUSION: 1. Severe right carotid bifurcation atherosclerotic plaque. The proximal right ICA is occluded, presumably nonacute. 2. Moderate left carotid bifurcation atherosclerotic plaque with low-grade, non-hemodynamically significant narrowing of the proximal left ICA. 3. Patent, codominant vertebral arteries. Robert Pereira MD Assessment and Plan Assessment: (1) CVA (cerebral vascular accident) Status: Acute Plan 71 year old female who had a CVA approximately 6 weeks ago. Resolving (left arm weakness) and progressive (left leg) symptoms that prompted her to seek medical attention. Right ICA appears occluded. Left ICA appears to have low-grade non-significant stenosis. No intervention for her occluded right ICA and Surveillance duplex US for left ICA. Would recommend antiplatelet and statin therapy. Consult appreciated. Freddy Jose DO, FACS [employer] [facility] Problem Qualifiers (1) CVA (cerebral vascular accident): Qualified Code: I63.231 - Cerebrovascular accident (CVA) due to occlusion of right carotid artery Freddy Jose DO Oct 15, 2016 16:11
[2016-10-15] MEDS: ATORVASTATIN 10 MG TAB PO SCH (21:07)
--- NOTE | 2016-10-15 23:44 | HHI.PR ---
Review/Management Diagnosis 1. Ischemic stroke right cerebral hemisphere multifocal. 2. Possible etiology is right ICA narrowing/stenosis. - CT scan of the head without contrast revealed abnormalities in the right hemisphere, low right occipital lobe, parafalcine, parasagittal low density and ramires-white matter watershed right parietal occipital lobe. Findings consistent with interim infarction of indeterminate age. - Brain MRI without contrast revealed acute multifocal infarction involving the right parietal lobe, right occipital lobe and right temporal lobe. There is signal noted within the right ICA suggesting occlusion of that vessel. Small foci of blood product scattered through the right parietal lobe infarction. No large volume hemorrhage observed. - Head MRA without contrast reveals lack of signal involving the right ICA as well as the right posterior cerebral artery suggesting either complete occlusion or extremely high grade stenosis with poor flow. - Carotid ultrasound revealed markedly abnormal atherosclerotic changes distal segment of the right ICA suggesting high grade or complete stenosis. Plan - Neuro checks q.4 hourly. - Aspirin 325 mg daily. - PT, OT recommendations are appreciated. - Stable from neurology stand point - DVT prophylaxis. - GI prophylaxis. - Placement for rehab - May follow up outpatient neurology Diagnosis/Plan: Subjective Subjective Comments No acute events reported CTA with complete occlusion of right ICA, beyond surgical intervention Vascular surgery on board, recommendations are appreciated Active Medications Current Medications Medications (Trade) Dose Ordered Sig/Rafael Route Start Time Stop Time Status Last Admin (NS Flush) 2 ml BID IVF 10/13/16 21:00 10/15/16 21:07 (NS Flush) 2 ml UNSCH PRN IVF 10/13/16 14:45 (Vasotec Inj) 1.25 mg Q4H PRN IV 10/13/16 14:45 (D50w (Vial) Inj) 25 ml UNSCH PRN IV PUSH 10/13/16 14:45 (Glucagon Inj) 1 mg UNSCH PRN IM/SQ 10/13/16 14:45 (Aspirin) 325 mg DAILY PO 10/14/16 09:00 10/15/16 09:42 (Tylenol) 650 mg Q4H PRN PO 10/13/16 18:15 10/15/16 01:06 (Zofran Inj) 4 mg Q6H PRN IV 10/13/16 18:15 (Chyna-Colace) 1 tab BID PRN PO 10/13/16 18:15 (Protonix Inj) 40 mg Q24H IV PUSH 10/14/16 09:00 10/15/16 09:43 (Tylenol) 650 mg Q4H PRN PO 10/14/16 11:00 10/15/16 16:00 (Lipitor) 10 mg HS PO 10/14/16 21:00 10/15/16 21:07 (Flu (Quadrivalent) Vaccine Inj) 0.5 ml ONCE ONCE IM 10/16/16 10:00 10/16/16 10:01 Allergies Allergies Coded Allergies No Known Allergies (Ignsncykjn36/30/16) Exam I&O / VS 10/14/16 10/14/16 10/15/16 14:59 22:59 06:59 Intake Total 240 ml 750 ml 500 ml Output Total 0 ml Balance 240 ml 750 ml 500 ml Intake Oral 240 ml 750 ml 500 ml Output Urine Total 0 ml # Voids 2 0 # Bowel Movements 0 0 Vital Signs Date Time Temp Pulse Resp B/P Pulse Ox O2 Delivery O2 Flow Rate FiO2 10/15/16 20:29 97.8 77 18 130/68 94 10/15/16 16:00 97.0 72 16 157/82 95 10/15/16 12:00 97.7 75 18 157/54 97 10/15/16 08:54 96 21 10/15/16 08:33 96.7 73 18 144/69 98 10/15/16 07:00 80 10/15/16 05:20 97.9 80 17 145/69 98 10/15/16 04:24 96 21 10/15/16 00:30 98.1 74 17 168/88 97 10/15/16 00:00 97.1 84 18 138/80 97 Exam Comments GENERAL: Well-nourished and in no acute distress, good historian. HEENT: Atraumatic, normocephalic. Intact vision. Intact hearing. NECK: No carotid bruits. Supple neck. No meningeal sign. CARDIOVASCULAR: Regular rate and rhythm without murmurs. RESPIRATORY: Clear to auscultation. No wheezes. MUSCULOSKELETAL: Without clubbing, cyanosis or edema. NEUROLOGIC: Awake, alert, oriented to time, person and place. Intact speech. Intact speech content. Cranial nerves are grossly intact. Motor system: Right side 5/5 bedside, 4 shoulder abduction, elbow extension and wrist extension on the left side, 4-/5 hip flexion, knee extension, 4/5 foot dorsiflexion. Reflexes: 2+ bilateral, symmetrical. Plantars bilaterally downgoing. Sensation is intact throughout. Cerebellar signs are intact, [id number], [id number]. PSYCHOLOGICAL: Mood and behavior and normal judgment. Objective Radiology Results Last 72 hours Impressions Neck CTA 10/14/16 0000 Signed Impressions: Service Date/Time: Friday, October 14, 2016 15:55 - CONCLUSION: 1. Severe right carotid bifurcation atherosclerotic plaque. The proximal right ICA is occluded, presumably nonacute. 2. Moderate left carotid bifurcation atherosclerotic plaque with low-grade, non-hemodynamically significant narrowing of the proximal left ICA. 3. Patent, codominant vertebral arteries. Robert Pereira MD Head CT 10/13/16 1319 Signed Impressions: Service Date/Time: Thursday, October 13, 2016 13:44 - CONCLUSION: Abnormalities right hemisphere low right occipital lobe parafalcine parasagittal low density and ramires white matter watershed right parietal occipital lobe. Findings are consistent with interim infarct of indeterminate age MD Mary Monterroso Raid G. MD Oct 15, 2016 23:44
[2016-10-16 04:00] VITALS: BP 144/69; PULSE 68; RESP 16; TEMP 98; O2SAT 98
[2016-10-16] MEDS: ACETAMINOPHEN 325 MG TAB PO PRN ×2 (05:23→11:45)
[2016-10-16 08:00] VITALS: BP 126/80; PULSE 98; RESP 20; TEMP 97.6; O2SAT 94
[2016-10-16] MEDS: ASPIRIN 325 MG TAB PO SCH (08:45)
[2016-10-16] MEDS: PANTOPRAZOLE SODIUM 40 MG VIAL IV PUSH SCH (08:46)
[2016-10-16] MEDS: SODIUM CHLORIDE 0.9% FLUSH 5 ML FLUSH IVF SCH (08:46)
--- NOTE | 2016-10-16 08:51 | HHI.PR ---
Subjective Remarks Follow-up CVA 10/14/16-patient seen and examined; complains of back pain. Patient with abnormal carotid SHOWING RIGHT ICA HIGH-GRADE OR COMPLETE STENOSIS 10/15/16-patient seen and examined, report improvement of left lower extremity weakness. Still complain of back pain. Neck CTA with significant right ICA occlusion 10/16/16-patient seen and examined. No acute event overnight. Reporting more strength in left lower extremity. Seen by vascular surgery and no intervention for right ICA occlusion. Objective Vitals Vital Signs Date Time Temp Pulse Resp B/P Pulse Ox O2 Delivery O2 Flow Rate FiO2 10/16/16 08:00 97.6 98 20 126/80 94 10/16/16 04:00 98.0 68 16 144/69 98 10/15/16 23:59 97.9 71 18 146/76 96 10/15/16 20:29 97.8 77 18 130/68 94 10/15/16 20:00 80 10/15/16 16:00 97.0 72 16 157/82 95 10/15/16 12:00 97.7 75 18 157/54 97 10/15/16 08:54 96 21 I/O 10/15/16 10/15/16 10/15/16 10/16/16 10/16/16 10/16/16 07:00 15:00 23:00 07:00 15:00 23:00 Intake Total 500 ml 240 ml Output Total 0 ml 175 ml 200 ml Balance 500 ml 65 ml -200 ml Intake Oral 500 ml 240 ml Output Urine Total 0 ml 175 ml 200 ml # Bowel Movements 0 0 Result Diagram: 10/13/16 1318 10/14/16 0827 Imaging Last Impressions Neck CTA 10/14/16 0000 Signed Impressions: Service Date/Time: Friday, October 14, 2016 15:55 - CONCLUSION: 1. Severe right carotid bifurcation atherosclerotic plaque. The proximal right ICA is occluded, presumably nonacute. 2. Moderate left carotid bifurcation atherosclerotic plaque with low-grade, non-hemodynamically significant narrowing of the proximal left ICA. 3. Patent, codominant vertebral arteries. Robert Pereira MD Head CT 10/13/16 1319 Signed Impressions: Service Date/Time: Thursday, October 13, 2016 13:44 - CONCLUSION: Abnormalities right hemisphere low right occipital lobe parafalcine parasagittal low density and ramires white matter watershed right parietal occipital lobe. Findings are consistent with interim infarct of indeterminate age Nabor Carbajal MD Head Magnetic Resonance Angiography 10/13/16 0000 Signed Impressions: Service Date/Time: Thursday, October 13, 2016 15:39 - CONCLUSION: 1. Lack of signal involving the right ICA as well as the right posterior cerebral artery suggesting either complete occlusion or extremely high grade stenosis with poor flow. Archie Ramirez Jr., MD Carotid Artery Ultrasound 10/13/16 0000 Signed Impressions: Service Date/Time: Thursday, October 13, 2016 16:05 - CONCLUSION: Markedly abnormal atherosclerotic changes distal segment of the right internal carotid suggesting high grade or complete stenosis. Further evaluation with CTA of the carotids is recommended particularly in view of the abnormality on today's MRA of the brain.. Nabor Carbajal MD Brain MRI 10/13/16 0000 Signed Impressions: Service Date/Time: Thursday, October 13, 2016 15:39 - CONCLUSION: 1. Acute multifocal infarction involving the right parietal lobe, right occipital lobe, and right temporal lobe. There is signal noted within the right ICA suggesting occlusion of that vessel. See MRA reported separately. 2. Small foci of blood product scattered throughout the right parietal lobe infarction. No large volume hemorrhage observe. Archie Ramirez Jr., MD Objective Remarks GENERAL: NAD SKIN: Warm and dry. HEAD: Normocephalic. EYES: No scleral icterus. No injection or drainage. NECK: Supple, trachea midline. No JVD or lymphadenopathy. CARDIOVASCULAR: Regular rate and rhythm without murmurs, gallops, or rubs. RESPIRATORY: Breath sounds equal bilaterally. No accessory muscle use. GASTROINTESTINAL: Abdomen soft, non-tender, nondistended. MUSCULOSKELETAL: No cyanosis, or edema. Neuro: Left-sided weakness BACK: Nontender without obvious deformity. No CVA tenderness. Procedures None A/P Problem List: (1) CVA (cerebral vascular accident) ICD Code: I63.9 Status: Acute (2) Chronic pain ICD Code: G89.29 Status: Chronic (3) Carotid stenosis, right ICD Code: I65.21 Status: Acute Assessment and Plan 71-year-old female with Acute CVA: Treatment per stroke protocol -Continue with aspirin -Continue statin therapy -NIHSS, Neuro checks, Monitor on telemetry -PT/OT/ST evaluations, consult rehab medicine -s/p permissive HTN, - HgbA1c pending -carotid U/S with right ICA high-grade or complete stenosis; neck CTA with Severe right carotid bifurcation atherosclerotic -Head CT 10/13/16 noted and review by me with the finding of Abnormalities right hemisphere low right occipital lobe parafalcine parasagittal low density and ramires white matter watershed right parietal occipital lobe. Findings are consistent with interim infarct of indeterminate age - brain MRI/MRA noted and reviewed by me - echocardiogram with EF of 55-60% -Neurology consulted and appreciate input History of hypertension: d/c permissive hypertension Right ICA high-grade stenosis: Neck CTA with finding of Severe right carotid bifurcation atherosclerotic. Vascular surgery consulted and at this time no intervention for occluding the right ICA. Continue with aspirin and statin. Recommended surveillance duplex ultrasound for left ICA DVT prophylaxis: Bilateral SCDs Problem Qualifiers (1) CVA (cerebral vascular accident): Qualified Code: I63.231 - Cerebrovascular accident (CVA) due to occlusion of right carotid artery Greyson Davis MD Oct 16, 2016 08:50
[2016-10-16] MEDS ORDERED: LIPI10TA PO (08:53)
[2016-10-16] MEDS ORDERED: ASPI325T PO (08:53)
--- NOTE | 2016-10-16 08:59 | HHI.DS ---
Discharge Summary Admission Date Oct 13, 2016 at 14:43 Discharge Date: Oct 16, 2016 Admitting Diagnosis CVA (1) CVA (cerebral vascular accident) ICD Code: I63.9 (2) Chronic pain ICD Code: G89.29 (3) Carotid stenosis, right ICD Code: I65.21 Procedures None Brief History - From Admission 71-year-old female with a history of GERD, chronic back pain, chronic pain syndrome was brought to the ED for evaluation of left lower extremity weakness without any associated pain. Both 2 weeks ago patient was traveling on a cruise and had what was described as a stroke with left upper extremity weakness without any other focal deficits. She stated, only blood work were performed on a cruise and patient was diagnosed with a stroke however there was no radiographic studies done at the time and no medications were prescribed. But in the past 24-48 hours patient noticed worsening left upper extremity weakness along with now left lower extremity weakness which apparently is new for patient. She denies any chest pain, shortness of breath, stress speech, GI bleed. CBC/BMP: 10/13/16 1318 10/14/16 0827 Significant Findings Laboratory Tests Test 10/13/16 10/13/16 13:19 13:59 Prothrombin Time 14.0 SEC (9.8-11.6) Estimat Glomerular Filtration 88 ML/MIN (>89) Rate Troponin I LESS THAN 0.02 NG/ML (0.02-0.05) Urine Benzodiazepines Screen POS (NEG) Imaging Last Impressions Neck CTA 10/14/16 0000 Signed Impressions: Service Date/Time: Friday, October 14, 2016 15:55 - CONCLUSION: 1. Severe right carotid bifurcation atherosclerotic plaque. The proximal right ICA is occluded, presumably nonacute. 2. Moderate left carotid bifurcation atherosclerotic plaque with low-grade, non-hemodynamically significant narrowing of the proximal left ICA. 3. Patent, codominant vertebral arteries. Robert Pereira MD Head CT 10/13/16 1319 Signed Impressions: Service Date/Time: Thursday, October 13, 2016 13:44 - CONCLUSION: Abnormalities right hemisphere low right occipital lobe parafalcine parasagittal low density and ramires white matter watershed right parietal occipital lobe. Findings are consistent with interim infarct of indeterminate age Nabor Carbajal MD Head Magnetic Resonance Angiography 10/13/16 Signed Impressions: Service Date/Time: Thursday, October 13, 2016 15:39 - CONCLUSION: 1. Lack of signal involving the right ICA as well as the right posterior cerebral artery suggesting either complete occlusion or extremely high grade stenosis with poor flow. Archie Ramirez Jr., MD Carotid Artery Ultrasound 10/13/16 Signed Impressions: Service Date/Time: Thursday, October 13, 2016 16:05 - CONCLUSION: Markedly abnormal atherosclerotic changes distal segment of the right internal carotid suggesting high grade or complete stenosis. Further evaluation with CTA of the carotids is recommended particularly in view of the abnormality on today's MRA of the brain.. Nabor Carbajal MD Brain MRI 10/13/16 Signed Impressions: Service Date/Time: Thursday, October 13, 2016 15:39 - CONCLUSION: 1. Acute multifocal infarction involving the right parietal lobe, right occipital lobe, and right temporal lobe. There is signal noted within the right ICA suggesting occlusion of that vessel. See MRA reported separately. 2. Small foci of blood product scattered throughout the right parietal lobe infarction. No large volume hemorrhage observe. Archie Ramirez Jr., MD PE at Discharge GENERAL: NAD SKIN: Warm and dry. HEAD: Normocephalic. EYES: No scleral icterus. No injection or drainage. NECK: Supple, trachea midline. No JVD or lymphadenopathy. CARDIOVASCULAR: Regular rate and rhythm without murmurs, gallops, or rubs. RESPIRATORY: Breath sounds equal bilaterally. No accessory muscle use. GASTROINTESTINAL: Abdomen soft, non-tender, nondistended. MUSCULOSKELETAL: No cyanosis, or edema. Neuro: Left-sided weakness BACK: Nontender without obvious deformity. No CVA tenderness. Hospital Course Patient was admitted secondary to stroke and was started on ischemic stroke treatment per protocol with consultation to neurology, PT/OT/speech therapy. She was started on antiplatelet therapy as well as statin and permissive hypertension were initiated. Radiographic studies including brain MRI/MRA as well as carotid ultrasound were performed. Secondary to abnormal carotid ultrasound with right ICA occlusion a neck CTA was obtained revealing a severe right ICA stenosis for which vascular surgery was consulted however it was not recommended any interventions for right ICA instead surveillance duplex ultrasound of the left ICA was recommended. DVT and GI prophylaxis were provided. Patient condition improved and she was able to tolerate by mouth without any complication nausea and vomiting. Vitals remained stable prior to discharge. Pt Condition on Discharge: Stable Discharge Disposition: Rehab Inpatient Discharge Time: > 30 minutes Discharge Instructions DIET: Follow Instructions for: Heart Healthy Diet Activities you can perform: Regular-No Restrictions Follow up Referrals: Neurology PCP Follow-up - 2-3 Days New Orders: US CAROTID ARTERIES - 6 Months New Medications: Aspirin (Aspirin) 325 Mg Tab 325 MG PO DAILY Prevent Blood Clot #30 TAB Atorvastatin (Lipitor) 10 Mg Tab 10 MG PO HS Stroke Prevention #30 TAB Continued Medications: Trazodone (Trazodone) 50 Mg Tab 50 MG PO HS Control Depression #30 Ref 0 TAB Greyson Davis MD Oct 16, 2016 08:59
[2016-10-16] MEDS ORDERED: INFLUENZA VIRUS VACCINE (QUADRIVALENT) 0.5 ML SYR IM ONE (10:00)
[2016-10-16] MEDS: INSULIN ASPART SUPPLEMENTAL SCALE SQ SCH (11:00)
[2016-10-16 12:25] VITALS: BP 148/68; PULSE 73; RESP 18; TEMP 96.7; O2SAT 96
[2016-10-16 17:19] LABS: HEMOGLOBIN A1a 1.2 %; HEMOGLOBIN A1b 0.8 %; HEMOGLOBIN Ao 85.5 %; HEMOGLOBIN F 0.9 %; HEMOGLOBIN LA1C 1.5 %; HEMOGLOBIN P3 3.5 %
--- NOTE | 2016-10-16 18:29 | HM ---
Date Performed: 10/13/2016 Time Performed: 21:30:00 HOOKUP DATE: 10/13/16 09:30:00 PM Fri ANALYSIS START TIME: 10/13/2016 9:35:00 PM ANALYSIS END TIME: 10/14/2016 9:38:59 PM PATIENT AGE: 71 PATIENT HEIGHT PATIENT WEIGHT DRUG LIST PATIENT DIAGNOSIS: HEADACHE/EVAC TEST NARRATIVE: The patient's average heart rate was 80 BPM. Heart rates greater than 120 B PM were noted < 1% of the time. No episodes of bradycardia were noted. 2 pauses exceeding 2.0 s econds were noted. The longest pause of 2.3 seconds occurred at 12:17:17 AM Sat. 503 ventricular ectopics, which represented < 1% of the total beat count, were noted. The highest ventricular ectopi c frequency occurred from 02:00 PM to 03:00 PM Sat. During this time 39 VE(s) occurred. Ventricular ectopics were observed as 495 isolated beat(s) and as 4 couplet(s). No runs were noted. Some of th e ventricular beats occurred in bigeminal cycles. 29 supraventricular ectopics, which represented < 1% of the total beat count, were noted. The highest supraventricular ectopic frequency occurred f rom 05:00 PM to 06:00 PM Sat. During this time 5 SVE(s) occurred. No episodes of ST depression ( defined as -1.0 mm or more) were noted in channel 1. No episodes of ST depression (defined as -1.0 m m or more) were noted in channel 2. No episodes of ST depression (defined as -1.0 mm or more) were n oted in channel 3. TEST INTERPRETATION: 24 Hour Holter Monitor-Dr. Canas Predominant rhythm was sinus. Occas sional premature ventricular contractions. Brief bigeminy. The longest pause is 2.3 seconds at 12:17 a.m. There was no atrial fibrillation noted. There were no diary entries provided. Signed by : Alida Downs
[2016-10-16] MEDS ORDERED: traZODone HCL 50 MG TAB PO SCH (21:00)
[2016-10-30] MEDS ORDERED: PANT40TA3 PO (08:12)
[2016-10-30] MEDS ORDERED: LIDO5DIS35 TD (08:12)
[2016-10-30] MEDS ORDERED: FOLI1TAB4 PO (08:12)
[2016-10-30] MEDS ORDERED: LIPI10TA PO (08:12)
[2016-10-30] MEDS ORDERED: FIBE625T PO (08:12)
[2016-10-30] MEDS ORDERED: NICO14DI TD (08:12)
[2016-10-30] MEDS ORDERED: HYDR-3580 PO (08:12)
[2016-10-30] MEDS ORDERED: ASPI325T PO (08:12)
[2016-10-30] MEDS ORDERED: VITA100T2 PO (08:12)
== END 2016-10-16 13:43 | DRG 66 ==
LOC: NEPE 12:26 → NEDA 14:43 → N05A 19:16
PROVIDERS: ADMIT Hospitalist; ATTEND Hospitalist
DX: I63.231 Cerebral infarction due to unspecified occlusion or stenosis of right carotid arteries (principal); I10 Essential (primary) hypertension; G89.4 Chronic pain syndrome; K21.9 Gastro-esophageal reflux disease without esophagitis; Z72.0 Tobacco use; Z66 Do not resuscitate; Z79.82 Long term (current) use of aspirin; Z86.73 Personal history of transient ischemic attack (TIA), and cerebral infarction without residual deficits
CPT/HCPCS: 70450; 70498; 70544; 70551; 80048; 80053; 80061; 80301; 80320; 82948; 83036; 84484; 85025; 85610; 85730; 90471; 90686; 93005; 93225; 93226; 93306; 93880; C9113; G0008; G0479; J7030; Q2038; Q9967

== ENCOUNTER 2017-01-01 16:53 | Observation (INO) | payer MEDICARE, BC ==
[~2017-01-01] VITALS: Ht 182.9 cm; Wt 60.0 kg
[~2017-01-01 16:53] MED LIST: ASPI325T PO; FIBE625T PO; FOLI1TAB4 PO; HYDR-3580 PO; LIDO5DIS35 TD; LIPI10TA PO; NICO14DI TD; PANT40TA3 PO; VITA100T2 PO
[2017-01-01 17:09] VITALS: BP 151/68; PULSE 70; RESP 16; O2SAT 100
[2017-01-01] MEDS ORDERED: TEMA7.5C PO (17:17)
[2017-01-01] MEDS ORDERED: GABA100C4 PO (17:17)
[2017-01-01] MEDS ORDERED: IBUP-232 PO (17:17)
--- NOTE | 2017-01-01 17:17 | PD ---
HPI Chief Complaint: Dizziness Time Seen by Provider: 17:17 Travel History International Travel<30 days: No Contact w/Intl Traveler<30days: No Traveled to known affect area: No History of Present Illness HPI 71-year-old female with a history of CVA, chronic back pain, hypertension presents to the emergency department by EMS for evaluation of dizziness. 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 She states that once she sat down for several minutes the dizziness resolved. States that she did not feel like she was going to pass out and does not describe it as the room is spinning. Per EMS the patient had positive orthostatic vital signs. The patient states that she has chronic left-sided weakness secondary to her prior stroke. States that she does not have any new weakness, numbness or tingling, chest pain, shortness of breath, nausea, vomiting. PCP Dr. Juarez. No other complaints. PFSH Past Medical History Arthritis: No Asthma: No Autoimmune Disease: No Blood Disorders: No Anxiety: Yes Depression: Yes Heart Rhythm Problems: No Cancer: No Cardiovascular Problems: Yes High Cholesterol: No Chemotherapy: No Chest Pain: No Congestive Heart Failure: No COPD: No Diabetes: No Diminished Hearing: No Endocrine: No Gastrointestinal Disorders: Yes GERD: Yes Genitourinary: No Hiatal Hernia: No Hypertension: Yes Immune Disorder: No Implanted Vascular Access Dvce: Yes Kidney Stones: No Musculoskeletal: Yes (Chronic low back pain) Neurologic: Yes (History of possible stroke 2 weeks prior to admission) Psychiatric: Yes Reproductive: No Respiratory: No Immunizations Current: No Migraines: No Radiation Therapy: No Renal Failure: No Seizures: No Sickle Cell Disease: No Sleep Apnea: No Thyroid Disease: No Ulcer: No Menopausal: Yes : 0 Para: 0 Miscarriage: 0 : 0 Past Surgical History Abdominal Surgery: Yes (appendectomy) AICD: No Arteriovenous Shunt: No Cardiac Surgery: No Ear Surgery: No Endocrine Surgery: No Eye Surgery: No Genitourinary Surgery: No Gynecologic Surgery: Yes (hysterectomy) Hysterectomy: Yes Insulin Pump: No Joint Replacement: No Pacemaker: No Other Surgery: Yes (MORPHINE PUMP IMPLANTED AND REMOVED) Social History Alcohol Use: No Tobacco Use: Yes Substance Use: No Allergies-Medications (Allergen,Severity, Reaction): Coded Allergies: No Known Allergies (Unverified , 01/01/17) Reported Meds & Prescriptions Reported Meds & Active Scripts Active Folate (Folic Acid) 1 Mg Tab 1 Mg PO DAILY Lipitor (Atorvastatin Calcium) 10 Mg Tab 10 Mg PO HS Aspirin 325 Mg Tab 325 Mg PO DAILY Reported Oxycodone (Oxycodone HCl) 30 Mg Tab 30 Mg PO Q8H PRN Temazepam 7.5 Mg Cap 7.5 Mg PO HS PRN Ibuprofen 600 Mg Tab 600 Mg PO Q8HR PRN Gabapentin 100 Mg Cap Unknown Dose PO TID Review of Systems Except as stated in HPI: all other systems reviewed are Neg Physical Exam Narrative GENERAL: Well-nourished and well-developed pleasant female patient in no acute distress who is nontoxic appearing. SKIN: Warm and dry. HEAD: Normocephalic and atraumatic. EYES: No injection, drainage, or hyphema noted. PERRLA. EOMI. ENT: No nasal drainage noted. Oropharynx is clear. NECK: Supple and the trachea is midline. CARDIOVASCULAR: Regular rate and rhythm. RESPIRATORY: Breath sounds are equal bilaterally with no accessory muscle use, wheezing, rhonchi, or crackles. GASTROINTESTINAL: Abdomen is soft, non-tender, and nondistended. MUSCULOSKELETAL: No obvious deformities, swelling, cyanosis, or ecchymosis is present throughout the upper and lower extremities. Patient has full range of motion without any signs of neurovascular compromise. Strength 5/5 upper extremities and equal bilaterally. Strength 5/5 lower extremities, weaker on the left. NEUROLOGICAL: Awake, alert, and oriented. Normal speech and gait. Cranial nerves are grossly intact. Data Data Last Documented VS Vital Signs Date Time Temp Pulse Resp B/P Pulse Ox O2 Delivery O2 Flow Rate FiO2 01/01/17 17:09 70 16 151/68 100 Room Air Orders Electrocardiogram (01/01/17 17:16) Complete Blood Count With Diff (01/01/17 17:16) Comprehensive Metabolic Panel (01/01/17 17:16) Magnesium (Mg) (01/01/17 17:16) Ckmb (Isoenzyme) Profile (01/01/17 17:16) Troponin I (01/01/17 17:16) Act Partial Throm Time (Ptt) (01/01/17 17:16) Prothrombin Time / Inr (Pt) (01/01/17 17:16) Urinalysis - C+S If Indicated (01/01/17 17:16) Ecg Monitoring (01/01/17 17:16) Iv Access Insert/Monitor (01/01/17 17:16) Oximetry (01/01/17 17:16) Sodium Chloride 0.9% Flush (Ns Flush) (01/01/17 17:30) Ct Brain W/O Iv Contrast(Rout) (01/01/17 17:18) CKMB (01/01/17 17:30) CKMB% (01/01/17 17:30) Potassium, Serum (K) (01/01/17 21:49) Calcium Gluconate Inj (Calcium Gluconate (01/01/17 19:00) Insulin Human Regular Inj (Novolin R Inj (01/01/17 19:00) Dextrose 50% In Grupo (Vial) Inj (D50w (Vi (01/01/17 19:00) Sodium Polysty Sulfate Liq (Kayexalate L (01/01/17 19:00) Admit Order (Ed Use Only) (01/01/17 18:57) Labs Laboratory Tests Test 01/01/17 17:30 White Blood Count 11.2 TH/MM3 Red Blood Count 4.03 MIL/MM3 Hemoglobin 12.8 GM/DL Hematocrit 38.0 % Mean Corpuscular Volume 94.2 FL Mean Corpuscular Hemoglobin 31.7 PG Mean Corpuscular Hemoglobin 33.7 % Concent Red Cell Distribution Width 13.4 % Platelet Count 206 TH/MM3 Mean Platelet Volume 9.7 FL Neutrophils (%) (Auto) 71.5 % Lymphocytes (%) (Auto) 20.2 % Monocytes (%) (Auto) 6.7 % Eosinophils (%) (Auto) 1.1 % Basophils (%) (Auto) 0.5 % Neutrophils # (Auto) 8.0 TH/MM3 Lymphocytes # (Auto) 2.3 TH/MM3 Monocytes # (Auto) 0.7 TH/MM3 Eosinophils # (Auto) 0.1 TH/MM3 Basophils # (Auto) 0.1 TH/MM3 CBC Comment DIFF FINAL Differential Comment Prothrombin Time 11.2 SEC Prothromb Time International 1.0 RATIO Ratio Activated Partial 23.3 SEC Thromboplast Time Sodium Level 136 MEQ/L Potassium Level 5.9 MEQ/L Chloride Level 103 MEQ/L Carbon Dioxide Level 26.2 MEQ/L Anion Gap 7 MEQ/L Blood Urea Nitrogen 16 MG/DL Creatinine 1.17 MG/DL Estimat Glomerular Filtration 45 ML/MIN Rate Random Glucose 82 MG/DL Calcium Level 9.6 MG/DL Magnesium Level 1.9 MG/DL Total Bilirubin 0.4 MG/DL Aspartate Amino Transf 46 U/L (AST/SGOT) Alanine Aminotransferase 18 U/L (ALT/SGPT) Alkaline Phosphatase 63 U/L Total Creatine Kinase 157 U/L Creatine Kinase MB 0.8 NG/ML Troponin I LESS THAN 0.02 NG/ML Total Protein 7.1 GM/DL Albumin 3.9 GM/DL [facility] Medical Decision Making Medical Screen Exam Complete: Yes Emergency Medical Condition: Yes Differential Diagnosis Orthostatic hypotension versus UTI versus CVA versus TIA Narrative Course 71-year-old female presents to the emergency department for evaluation of episode of dizziness. Patient is afebrile, vital signs are stable. Physical examination is essentially unremarkable. She has chronic left-sided weakness secondary to prior CVA. Patient had CVA 3 months ago, I did review the EMR which show she has right ICA stenosis for which there was no surgical intervention only medical management. IV access is obtained, labs were drawn and sent. CT has been ordered and is pending. EKG shows sinus rhythm with first-degree AV block, no acute ST elevations or depressions, no peaked T waves. CBC shows slightly elevated white blood cell count of 11.2. CMP shows hyperkalemia with a potassium of 5.9. Mild renal insufficiency with a creatinine of 1.17, GFR 45. Troponin is less than 0.02. Head CT shows areas of old infarction involving the right occipital lobe and high right posterior parietal lobe, no acute abnormalities. The patient is administered 6 units of insulin, 1 amp of D50, 1 g of calcium, 15 g of Kayexalate for treatment of hyperkalemia. Patient will be admitted to observation for repeat potassium and observation with monitoring. I discussed the case with my attending physician Dr. Stevens who is aware of the patients history, physical examination findings, and treatment plan. Physician Communication Physician Communication I spoke with Dr. Rahman who agrees to admit the patient to her service. Diagnosis Primary Impression: Hyperkalemia Additional Impression: Dizziness Admitting Information Admitting Physician Requests: Observation Jennyfer Paulson Jan 01, 2017 17:17
[2017-01-01] MEDS ORDERED: OXYC30TA PO (17:18)
[2017-01-01] MEDS ORDERED: SODIUM CHLORIDE 0.9% FLUSH 5 ML FLUSH IVF PRN (17:30)
[2017-01-01 18:02] LABS: BASOPHIL # 0.1 TH/MM3 (0-0.2); BASOPHIL % 0.5 % (0.0-2.0); EOSINOPHIL # 0.1 TH/MM3 (0-0.4); EOSINOPHIL % 1.1 % (0.0-4.0); HEMO FLAGS DIFF FINAL; LYMPH % 20.2 % (9.0-44.0); LYMPHOCYTE # 2.3 TH/MM3 (1.0-4.8); MEAN CELL VOLUME 94.2 FL (80.0-100.0); MEAN CORPUSCULAR HEMOGLOBIN 31.7 PG (27.0-34.0); MEAN CORPUSCULAR HGB CONC 33.7 % (32.0-36.0); MONO % 6.7 % (0.0-8.0); NEUT % 71.5 % (16.0-70.0); PLATELET COUNT 206 TH/MM3 (150-450); RED BLOOD COUNT 4.03 MIL/MM3 (4.00-5.30); RED CELL DISTRIBUTION WIDTH 13.4 % (11.6-17.2); WHITE BLOOD COUNT 11.2 TH/MM3 (4.0-11.0)
[2017-01-01 18:14] LABS: APTT (PATIENT) 23.3 SEC (24.3-30.1); PROTHROMBIN TIME - PATIENT 11.2 SEC (9.8-11.6)
--- NOTE | 2017-01-01 18:15 | RADRPT ---
EXAM DATE/TIME: 01/01/2017 17:58 [facility] COMPARISON: CT BRAIN W/O CONTRAST, October 13, 2016, 13:44. INDICATIONS : Dizziness and nausea today. RADIATION DOSE: 56.35 CTDIvol (mGy) MEDICAL HISTORY : Hypertension. Cardiovascular disease Stroke. SURGICAL HISTORY : Hysterectomy. Appendectomy. ENCOUNTER: Initial ACUITY: 1 day PAIN SCALE: 0/10 LOCATION: Bilateral head TECHNIQUE: Multiple contiguous axial images were obtained of the head. Using automated exposure control and adj ustment of the mA and/or kV according to patient size, radiation dose was kept as low as reasonably a chievable to obtain optimal diagnostic quality images. FINDINGS: CEREBRUM: The ventricles are normal for age. There is bilateral cortical atrophy. There is an area of old infar ction involving the right occipital lobe and high right posterior parietal lobe. No evidence of midl ine shift, mass lesion, hemorrhage or acute infarction. No extra-axial fluid collections are seen. POSTERIOR FOSSA: The cerebellum and brainstem are intact. The 4th ventricle is midline. The cerebellopontine angle i s unremarkable. EXTRACRANIAL: The visualized portion of the orbits is intact. SKULL: The calvaria is intact. No evidence of skull fracture. CONCLUSION: 1. No acute intracranial hemorrhage. 2. Areas of old infarction involving the right occipital lobe and high right posterior parietal lobe. 3. Bilateral cortical atrophy. Derek Kiser MD on January 01, 2017 at 18:11 Board Certified Radiologist. This report was verified electronically.
[2017-01-01 18:18] LABS: ALT (GPT) 18 U/L (10-53); ANION GAP 7 MEQ/L (5-15); AST (GOT) 46 U/L (15-37); BICARBONATE 26.2 MEQ/L (21.0-32.0); BLOOD UREA NITROGEN 16 MG/DL (7-18); CHLORIDE 103 MEQ/L (98-107); GLOMERULAR FILTRATION RATE 45 ML/MIN (>89); MAGNESIUM 1.9 MG/DL (1.5-2.5); POTASSIUM 5.9 MEQ/L (3.5-5.1); SODIUM (NA) 136 MEQ/L (136-145)
[2017-01-01 18:19] LABS: ALKALINE PHOSPHATASE 63 U/L (45-117); CREATINE KINASE 157 U/L (26-192); TOTAL BILIRUBIN ADULT 0.4 MG/DL (0.2-1.0)
[2017-01-01 18:33] LABS: CKMB 0.8 NG/ML (0.5-3.6)
[2017-01-01] MEDS ORDERED: DEXTROSE 50% IN WATER 50 ML VIAL(D50) IV PUSH ONE (19:00)
[2017-01-01] MEDS ORDERED: CALCIUM GLUCONATE 10% 1 GM/10 ML VIAL SLOW IVP ONE (19:00)
[2017-01-01] MEDS ORDERED: SODIUM POLYSTYRENE SULFONATE SUSP 15 GM/60 ML CUP PO ONE (19:00)
[2017-01-01] MEDS ORDERED: INSULIN HUMAN REGULAR 1,000 UNITS/10 ML VIAL IV PUSH ONE (19:00)
[2017-01-01] MEDS ORDERED: NALOXONE HCL 0.4 MG/ML AMP IV PRN (20:15)
[2017-01-01] MEDS ORDERED: SODIUM CHLORIDE 0.9% FLUSH 5 ML FLUSH FLUSH PRN (20:15)
[2017-01-01] MEDS ORDERED: ONDANSETRON HCL 4 MG/2 ML VIAL IVP PRN (20:15)
[2017-01-01] MEDS: SODIUM CHLORIDE 0.9% FLUSH 5 ML FLUSH FLUSH SCH (21:00)
[2017-01-01 23:09] LABS: BLOOD, URINE NEG (NEG); COMMENT (UR) CULT NOT INDICATED; CULTURE IF INDICATED CULT NOT INDICATED; GLUCOSE,URINE NEG (NEG); HYALINE CAST, URINE 21 /lpf (RARE); KETONE, URINE NEG (NEG); MUCUS URINE FEW /lpf (OCC); NITRITE,URINE NEG (NEG); SQUAMOUS EPITHELIAL CELL URINE 1 /hpf (0-5); URINE COLOR YELLOW (YELLW/STRAW)
[2017-01-01] MEDS ORDERED: SODIUM CHLOR 0.9% 1000 ML INJ 1,000 ML IV SCH (23:45)
--- NOTE | 2017-01-01 23:54 | HHI.HP ---
[facility] Dr. Ramires . Admission Diagnosis Hyperkalemia, Dizziness Diagnoses: (1) Hyperkalemia (2) Dizziness (3) Leukocytosis (4) Acute renal failure (5) Chronic pain Chief Complaint: Dizziness Travel History International Travel<30 Days: No Contact w/Intl Traveler <30 Da: No Traveled to Known Affected Are: No History of Present Illness Ms. Alfredo is a 71 year-old female with a history of right hemisphere multifocal CVA, severe right carotid bifurcation atherosclerosis, proximal right internal carotid artery occlusion, moderate left carotid bifurcation atherosclerosis, hypertension, chronic back and neck pain, and gastroesophageal reflux disorder who presented to the emergency room on 01/01/2017 for evaluation of dizziness. The patient states that she woke up with severe low back pain and stiffness in the morning. She then went to the dentist for her regular examination and received no anesthesia or injected medications. After the dentist, she went to the bank with her caregiver. She went to get out of the car and when she stood up she felt extremely dizzy and almost fell down. A seal delivery vehicle officer saw the episode, spoke with her, and alerted EMS. She had positive orthostatic hypotension upon evaluation by EMS. There was no associated chest pain, blurry vision, or paresthesias with this episode of dizziness. She denies any prior episodes of dizziness, diarrhea, nausea, vomiting, black or red stools. She does report some left-sided residual weakness in her hand from her recent CVA which occurred in September 2016. She reports no residual dysphagia and states she walks occasionally with a cane but does not need a walker for ambulation. She does not feel that she is able to drive. She denies hypertension, diabetes mellitus, atrial fibrillation. She reports a history of [place] based on an EKG that showed a probable old [place] in 2013. She reports being very athletic for most of her life. She denies COPD, liver problems, kidney problems, seizures, thyroid problems, cancer, or DVTs. She denies any recent weight loss but appears somewhat cachectic with some temporal wasting. She states that about a year ago she was on a cruise and lost 40 pounds in one month because of stress related to her nephew. She reports she is putting all of the weight back on. She says she eats a lot of ice cream. Has had a colonoscopy in the last ten years but does not remember when. Head CT was negative for acute intracranial hemorrhage. Areas of old infarction involving the right occipital lobe in the high right posterior parietal lobe noted. Bilateral cortical atrophy noted. . Review of Systems Except as stated in HPI: all other systems reviewed are Neg Past Family Social History Past Medical History Chronic pain syndrome . Past Surgical History Hysterectomy Appendectomy Varicose veins stripped Titanium rods in back Cervical fusion . Reported Medications Reported Meds & Active Scripts Active Folate (Folic Acid) 1 Mg Tab 1 Mg PO DAILY Lipitor (Atorvastatin Calcium) 10 Mg Tab 10 Mg PO HS Aspirin 325 Mg Tab 325 Mg PO DAILY Reported Oxycodone (Oxycodone HCl) 30 Mg Tab 30 Mg PO Q8H PRN Temazepam 7.5 Mg Cap 7.5 Mg PO HS PRN Ibuprofen 600 Mg Tab 600 Mg PO Q8HR PRN Gabapentin 100 Mg Cap Unknown Dose PO TID . Allergies: Coded Allergies: No Known Allergies (Unverified , 01/01/17) Active Ordered Medications Current Medications IV Flush (NS Flush) 2 ml UNSCH PRN IVF FLUSH AFTER USING IV ACCESS; Start 01/01 at 17:30 Calcium Gluconate (Calcium Gluconate Inj) 1 gm ONCE ONCE SLOW IVP Last administered on 01/01/17 20:29; Start 01/01/17 at 19:00; Stop 01/01/17 at 19:01 ; Status DC Insulin Human Regular (NovoLIN R INJ) 6 units ONCE ONCE IV PUSH Last administered on 01/01/17 20:29; Start 01/01/17 at 19:00; Stop 01/01/17 at 19:01 ; Status DC Dextrose (D50w (Vial) Inj) 50 ml ONCE ONCE IV PUSH Last administered on 20:29; Start 01/01/17 at 19:00; Stop 01/01/17 at 19:01; Status DC Sodium Polystyrene Sulfonate (Kayexalate Liq) 15 gm ONCE ONCE PO Last administered on 01/01/17 20:30; Start 01/01/17 at 19:00; Stop 01/01/17 at 19:01 ; Status DC IV Flush (NS Flush) 2 ml UNSCH PRN FLUSH FLUSH AFTER USING IV ACCESS; Start at 20:15 IV Flush (NS Flush) 2 ml BID FLUSH ; Start 01/01/17 at 21:00 Ondansetron HCl (Zofran Inj) 4 mg Q6H PRN IVP NAUSEA OR VOMITING; Start at 20:15 Enoxaparin Sodium (Lovenox Inj) 40 mg Q24H SQ ; Start 01/02/17 at 09:00 Naloxone HCl (Narcan Inj) 0.4 mg UNSCH PRN IV SEE LABEL COMMENTS; Start at 20:15 . Family History Brother with TIA at young age . Social History Tobacco: still smokes occasionally Alcohol: none . Physical Exam Vital Signs Vital Signs Date Time Temp Pulse Resp B/P Pulse Ox O2 Delivery O2 Flow Rate FiO2 01/01/17 17:09 70 16 151/68 100 Room Air Physical Exam GENERAL: This is a cachectic appearing elderly female patient, in no apparent distress. SKIN: No rashes, ecchymoses or lesions. Cool and dry. HEAD: Atraumatic. Normocephalic. EYES: No scleral icterus. No injection or drainage. ENT: Nose without bleeding, purulent drainage. NECK: Trachea midline. No JVD or lymphadenopathy. CARDIOVASCULAR: Regular rate and rhythm without murmurs, gallops, or rubs. RESPIRATORY: Clear to auscultation. Breath sounds equal bilaterally. No wheezes , rales, or rhonchi. GASTROINTESTINAL: Abdomen soft, non-tender, nondistended. No guarding. MUSCULOSKELETAL: Extremities without clubbing, cyanosis, or edema. No calf tenderness. NEUROLOGICAL: Awake and alert. Motor and sensory grossly within normal limits. Normal speech. . Laboratory Laboratory Tests Test 01/01/17 01/01/17 01/01/17 17:30 22:10 22:40 White Blood Count 11.2 Red Blood Count 4.03 Hemoglobin 12.8 Hematocrit 38.0 Mean Corpuscular Volume 94.2 Mean Corpuscular Hemoglobin 31.7 Mean Corpuscular Hemoglobin 33.7 Concent Red Cell Distribution Width 13.4 Platelet Count 206 Mean Platelet Volume 9.7 Neutrophils (%) (Auto) 71.5 Lymphocytes (%) (Auto) 20.2 Monocytes (%) (Auto) 6.7 Eosinophils (%) (Auto) 1.1 Basophils (%) (Auto) 0.5 Neutrophils # (Auto) 8.0 Lymphocytes # (Auto) 2.3 Monocytes # (Auto) 0.7 Eosinophils # (Auto) 0.1 Basophils # (Auto) 0.1 CBC Comment DIFF FINAL Differential Comment Prothrombin Time 11.2 Prothromb Time International 1.0 Ratio Activated Partial 23.3 Thromboplast Time Sodium Level 136 Potassium Level 5.9 3.7 Chloride Level 103 Carbon Dioxide Level 26.2 Anion Gap 7 Blood Urea Nitrogen 16 Creatinine 1.17 Estimat Glomerular Filtration 45 Rate Random Glucose 82 Calcium Level 9.6 Magnesium Level 1.9 Total Bilirubin 0.4 Aspartate Amino Transf 46 (AST/SGOT) Alanine Aminotransferase 18 (ALT/SGPT) Alkaline Phosphatase 63 Total Creatine Kinase 157 Creatine Kinase MB 0.8 Troponin I LESS THAN 0.02 Total Protein 7.1 Albumin 3.9 Urine Color YELLOW Urine Turbidity CLEAR Urine pH 6.0 Urine Specific [place] 1.016 Urine Protein TRACE Urine Glucose (UA) NEG Urine Ketones NEG Urine Occult Blood NEG Urine Nitrite NEG Urine Bilirubin NEG Urine Urobilinogen LESS THAN 2.0 Urine Leukocyte Esterase MOD Urine RBC 3 Urine WBC 5 Urine Squamous Epithelial 1 Cells Urine Hyaline Casts 21 Urine Mucus FEW Microscopic Urinalysis Comment CULT NOT INDICATED Result Diagram: 01/01/17 1730 01/01/17 2210 Imaging Last Impressions Head CT 01/01/17 1718 Signed Impressions: Service Date/Time: Sunday, January 01, 2017 17:58 - CONCLUSION: 1. No acute intracranial hemorrhage. 2. Areas of old infarction involving the right occipital lobe and high right posterior parietal lobe. 3. Bilateral cortical atrophy. Derek Kiser MD Assessment and Plan Problem List: (1) Dizziness ICD Code: R42 Status: Acute (2) Hyperkalemia ICD Code: E87.5 Status: Acute (3) Acute renal failure ICD Code: N17.9 Status: Acute (4) Leukocytosis ICD Code: D72.829 Status: Acute (5) Chronic pain ICD Code: G89.29 Status: Chronic Assessment and Plan Ms. Alfredo is a 71 year-old female with a history of right hemisphere multifocal CVA, severe right carotid bifurcation atherosclerosis, proximal right internal carotid artery occlusion, moderate left carotid bifurcation atherosclerosis, hypertension, chronic back and neck pain, and gastroesophageal reflux disorder who presented to the emergency room on 01/01/2017 for evaluation of dizziness. Dizziness - Check orthostatic vital signs - Consult physical therapy - Out of bed with assistance only - Continuous cardiac telemetry to monitor for cardiac arrhythmias - Check carotid artery ultrasound Hyperkalemia - Initial potassium level was 5.9 on admission - Treated in the ER with insulin, D50, calcium gluconate, and Kayexalate - Repeat potassium 3.7 - We will recheck in a.m. and follow results Acute renal failure possibly related to dehydration - BUN 16, creatinine 1.17, and estimated GFR 45 - qualifies as acute renal failure compared to prior renal indices (eGFR 91) - IV fluid hydration with normal saline at 84 cc per hour - Avoid nephrotoxins - Recheck BNP in a.m. and follow trends in renal indices Leukocytosis - infection vs stress response - WBC 11.2 with mild neutrophilia noted - Urinalysis with no culture indicated - We'll recheck in a.m. and follow trends Chronic back and neck pain - Continue home analgesia with oxycodone DVT prophylaxis - Lovenox 40 mg subcutaneous every 24 hours Written by Raisa Odell, acting as scribe for Dr. Pfeiffer on 01/01/17 at 23:40. .All or portions of this note were transcribed by scribe [Raisa Odell]. I, Dr. Huseyin Pfeiffer personally performed the history, physical exam, and medical decision making; and confirmed the accuracy of the information in the transcribed note. Authenticated by Dr. Huseyin Pfeiffer on 01/01/17 at 23:40. Discussed Condition With ER physician, RN, and patient . Problem Qualifiers (1) Leukocytosis: Qualified Code: D72.829 - Leukocytosis, unspecified type Raisa Odell Jan 01, 2017 23:54 Huseyin Pfeiffer MD Jan 02, 2017 07:34
[2017-01-02] VITALS: BP_SYST 105; BP_SYST 125; BP_SYST 95; BP_DIAS 46; BP_DIAS 51; BP_DIAS 57; PULSE 67; RESP 16; TEMP 97.8
[2017-01-02] MEDS ORDERED: TEMAZEPAM 7.5 MG CAP PO PRN (00:15)
[2017-01-02] MEDS ORDERED: NICOTINE 7 MG/24 HR PATCH TD ONE (00:15)
[2017-01-02 04:00] VITALS: BP_SYST 103; BP_SYST 99; BP_DIAS 46; BP_DIAS 50; BP_DIAS 59; PULSE 69; RESP 16; TEMP 97.8
[2017-01-02 07:01] LABS: AUTOMATED NEUTROPHIL # 4.9 TH/MM3 (1.8-7.7); BASOPHIL # 0.1 TH/MM3 (0-0.2); BASOPHIL % 0.7 % (0.0-2.0); EOSINOPHIL # 0.4 TH/MM3 (0-0.4); EOSINOPHIL % 4.3 % (0.0-4.0); HEMATOCRIT 35.7 % (35.0-46.0); HEMO FLAGS DIFF FINAL; LYMPH % 29.1 % (9.0-44.0); LYMPHOCYTE # 2.5 TH/MM3 (1.0-4.8); MEAN CELL VOLUME 93.5 FL (80.0-100.0); MEAN CORPUSCULAR HEMOGLOBIN 31.7 PG (27.0-34.0); MEAN CORPUSCULAR HGB CONC 33.9 % (32.0-36.0); MONO % 8.7 % (0.0-8.0); NEUT % 57.2 % (16.0-70.0); PLATELET COUNT 166 TH/MM3 (150-450); RED BLOOD COUNT 3.82 MIL/MM3 (4.00-5.30); WHITE BLOOD COUNT 8.6 TH/MM3 (4.0-11.0)
[2017-01-02 07:24] LABS: POTASSIUM 3.9 MEQ/L (3.5-5.1)
[2017-01-02 07:33] VITALS: BP 116/57; PULSE 65; RESP 16; TEMP 98.6; O2SAT 96
[2017-01-02] MEDS: SODIUM CHLORIDE 0.9% FLUSH 5 ML FLUSH FLUSH SCH (09:00)
[2017-01-02] MEDS ORDERED: ASPIRIN 325 MG TAB PO SCH (09:00)
[2017-01-02] MEDS ORDERED: ENOXAPARIN SODIUM 40 MG/0.4 ML SYRINGE SQ SCH (09:00)
[2017-01-02] MEDS ORDERED: FOLIC ACID 1 MG TAB PO SCH (09:00)
--- NOTE | 2017-01-02 09:31 | HHI.PR ---
Subjective Remarks Follow-up orthostatic dizziness. The patient states that she had an episode of dizziness when she got up to stand out of a car yesterday. No LOC or focal weakness. She feels well and is at her baseline currently. She states she ambulates to the restroom earlier with no assistance and no lightheadedness or dizziness. She feels well and would like to go home. She is not sure why she was dehydrated yesterday. She states she had 2 cups of coffee and a glass of water prior to her symptoms. She denies any nausea, vomiting, diarrhea, dysuria , urinary frequency. No recent medication changes. She does state that she had a bad morning yesterday with regards to her chronic pain,, denies any acute worsening pain at this time. Objective Vitals Vital Signs Date Time Temp Pulse Resp B/P Pulse Ox O2 Delivery O2 Flow Rate FiO2 01/02/17 07:33 98.6 65 16 116/57 96 01/02/17 04:00 97.8 69 16 103/50 99/59 99/46 01/02/17 00:00 97.8 67 16 125/57 105/51 95/46 01/01/17 17:09 70 16 151/68 100 Room Air Result Diagram: 01/02/17 0637 01/02/17 0637 Imaging Last Impressions Head CT 01/01/178 Signed Impressions: Service Date/Time: Sunday, January 01, 2017 17:58 - CONCLUSION: 1. No acute intracranial hemorrhage. 2. Areas of old infarction involving the right occipital lobe and high right posterior parietal lobe. 3. Bilateral cortical atrophy. Derek Kiser MD Objective Remarks GENERAL: Well-developed well-nourished. In no acute distress. SKIN: Warm and dry. No lesions noted. HEENT: Normocephalic. Pupils equal and round. Mucous membranes pink and moist. CARDIOVASCULAR: Regular rate and rhythm. No murmur appreciated. RESPIRATORY: No accessory muscle use. Clear to auscultation. Breath sounds equal bilaterally. GASTROINTESTINAL: Abdomen soft, non-tender, nondistended. Bowel sounds x4. MUSCULOSKELETAL: No obvious deformities. No clubbing or cyanosis. No edema. NEUROLOGICAL: Awake and alert. No focal neurological deficits. Moves upper and lower extremities spontaneously. Normal speech. PSYCHIATRIC: Appropriate mood and affect; insight and judgment normal. A/P Problem List: (1) Dizziness ICD Code: R42 Status: Resolved (2) Hyperkalemia ICD Code: E87.5 Status: Resolved (3) Acute renal failure ICD Code: N17.9 Status: Resolved (4) Leukocytosis ICD Code: D72.829 Status: Resolved (5) Chronic pain ICD Code: G89.29 Status: Chronic Assessment and Plan Ms. Alfredo is a 71 year-old female with a history of right hemisphere multifocal CVA, severe right carotid bifurcation atherosclerosis, proximal right internal carotid artery occlusion, moderate left carotid bifurcation atherosclerosis, hypertension, chronic back and neck pain, and gastroesophageal reflux disorder who presented to the emergency room on 01/01/2017 for evaluation of dizziness. Dizziness. Likely secondary to orthostasis. Orthostatic vital signs initially positive, given IVF, improving. Head CT with no acute process, old areas of infarction and atrophy - Repeat orthostatics - D/W physical therapy, no restrictions, no lightheadedness with PT - Continuous cardiac telemetry to monitor for cardiac arrhythmias - Slow transitions Acute renal failure Unclear etiology, but suspect related to dehydration. Creatinine 1.17 at admission, previously 0.64 on 10/17/16. Creatinine improved to 0.81 overnight with IVF. - Continue IVF Hyperkalemia Secondary to acute renal failure as above. Initial potassium level was 5.9 on admission. Treated in the ED with insulin, D50, calcium gluconate, and Kayexalate. - Repeat potassium 3.7/3.9. Resolved. Leukocytosis, mild Suspect stress response/hemoconcentration secondary to dizziness and dehydration. WBC 11.2 with mild neutrophilia noted. Urinalysis clear with no urinary symptoms. - WBC and neutrophil predominance has resolved to normal limits on repeat CBC. Resolved. Chronic back and neck pain - Continue home analgesia with oxycodone DVT prophylaxis - Lovenox 40 mg subcutaneous every 24 hours Discharge Planning Discharge planning for later today if patient remains stable and orthostasis continues to improve. Discussed with Dr. Doll. Problem Qualifiers (1) Acute renal failure: Qualified Code: N17.9 - Acute renal failure, unspecified acute renal failure type (2) Leukocytosis: Qualified Code: D72.829 - Leukocytosis, unspecified type (3) Chronic pain: Qualified Code: G89.4 - Chronic pain syndrome Anirudh Finley Jan 02, 2017 09:31 Qualified Code: G89.4 - Chronic pain syndrome Anirudh Finley Jan 02, 2017 09:31
--- NOTE | 2017-01-02 10:13 | EKG ---
Date Performed: 01/01/2017 Time Performed: 18:43:35 PTAGE: 71 years EKG: Sinus rhythm WITH FIRST DEGREE AV BLOCK ABNORMAL ECG PREVIOUS TRACING : 10/13/2016 13.10 DOCTOR: Mitchell Ruffin Interpretating Date/Time 01/02/2017 10:11:49
[2017-01-02 10:40] VITALS: BP_SYST 108; BP_SYST 112; BP_SYST 123; BP_DIAS 52; BP_DIAS 53; BP_DIAS 56; PULSE 71; RESP 16; TEMP 97.9; O2SAT 97
[2017-01-02] MEDS ORDERED: ATORVASTATIN 10 MG TAB PO SCH (21:00)
== END 2017-01-02 14:34 | disposition home or self-care (01) ==
LOC: NEPC 16:53 → NEDA 18:59 → NEPHCDU 22:43
PROVIDERS: ADMIT Hospitalist; ATTEND Hospitalist
DX: E87.5 Hyperkalemia (principal); N17.9 Acute kidney failure, unspecified; D72.829 Elevated white blood cell count, unspecified; R42 Dizziness and giddiness; I10 Essential (primary) hypertension; G89.4 Chronic pain syndrome; M54.5 Low back pain; I69.354 Hemiplegia and hemiparesis following cerebral infarction affecting left non-dominant side; K21.9 Gastro-esophageal reflux disease without esophagitis; F17.200 Nicotine dependence, unspecified, uncomplicated; Z79.899 Other long term (current) drug therapy; I65.21 Occlusion and stenosis of right carotid artery; I44.0 Atrioventricular block, first degree; I95.1 Orthostatic hypotension; I25.2 Old myocardial infarction; M54.2 Cervicalgia
CPT/HCPCS: 70450; 80048; 80053; 81001; 82550; 82552; 83735; 84132; 84484; 85025; 85610; 85730; 93005; 97163; 99285; G0378; G8987; G8988; J0610; J1815; J7030

== ENCOUNTER 2018-05-12 00:45 | Inpatient (IN) ==
[2018-05-12] MEDS ORDERED: Sod Chloride 0.9% Inj 1,000 ML IV.SIG ONE ×2 (00:54→02:28)
[2018-05-12 01:09] LABS: Baso # (Auto) 0.1 th/mm3 (0.0-0.2); Baso % (Auto) 0.6 % (0.0-2.0); Eos % (Auto) 0.4 % (0.0-4.0); Hematocrit 38.2 % (35.0-46.0); Lymph % (Auto) 8.7 % (9.0-44.0); Mean Corpuscular HGB Conc 33.9 % (32.0-36.0); Mean Corpuscular Volume 91.3 fL (80.0-100.0); Mean Platelet Volume 8.6 fL (7.0-11.0); Mono # (Auto) 0.5 th/mm3 (0.0-0.9); Mono % (Auto) 4.5 % (0.0-8.0); Neut # (Auto) 10.3 th/mm3 (1.8-7.7); Neut % (Auto) 85.8 % (16.0-70.0); Platelet Count 293 th/mm3 (150-450); Red Blood Count 4.18 mil/mm3 (4.00-5.30); Red Cell Distribution Width 13.7 % (11.6-17.2); White Blood Count 11.9 th/mm3 (4.0-11.0)
[2018-05-12 01:15] LABS: Chloride 103 meq/L (98-107); Potassium 4.2 meq/L (3.5-5.1); Sodium 138 meq/L (136-145)
[2018-05-12 01:18] LABS: Calcium 9.2 mg/dL (8.5-10.1)
[2018-05-12 01:19] LABS: Albumin 3.6 g/dL (3.4-5.0); Anion Gap 6 meq/L (5-15); Blood Urea Nitrogen 8 mg/dL (7-18); Carbon Dioxide 28.7 meq/L (21.0-32.0); Glucose,Random 135 mg/dL (74-106)
[2018-05-12 01:22] LABS: Alanine Aminotransferase 17 U/L (10-53); Aspartate Aminotransferase 19 U/L (15-37); Glomerular Filtration Rate 40 mL/min (>89)
[2018-05-12 01:24] LABS: Total Protein 6.9 g/dL (6.4-8.2)
[2018-05-12 01:25] LABS: Alkaline Phosphatase 94 U/L (45-117)
[2018-05-12 01:28] LABS: Bilirubin,Urine Negative (Negative); Clarity,Urine Clear (Clear); Color,Urine Yellow (Yellw/Straw); Glucose,Urine (UA) Negative (Negative); Leukocyte Esterase,Urine Negative (Negative); Nitrite,Urine Negative (Negative); PH,Urine 6.5 (5.0-8.5); Urobilinogen,Urine 0.2 mg/dL (Less than 2)
[2018-05-12 01:39] LABS: Squamous Epithelial Cell,Urine 0-5 /hpf (0-5)
[2018-05-12 01:40] LABS: Amorphous Sediment,Urine Occ /hpf; RBC,Urine 0-3 /hpf (0-3)
--- NOTE | 2018-05-12 01:43 | XR ---
EXAM DATE: 05/12/2018 1:11 AM EDT AGE/SEX: 73 years / Female INDICATIONS: Infiltrate. Rule out pneumonia. CLINICAL DATA: This is the patient's initial encounter. Patient reports that signs and symptoms have been present for 1 day and indicates a pain score of 0/10. MEDICAL/SURGICAL HISTORY: . Hypertension. Cardiovascular disease Stroke. . Hysterectomy. Appe ndectomy. COMPARISON: POI, CT LUNG SCREENING, 08/01/2017. . FINDINGS: Mild patchy airspace disease in the right medial lower lung zone. The cardiomediastinal contours are unremarkable. Osseous structures are intact. CONCLUSION: 1. Mild patchy airspace disease in the medial right lower lung zone concerning for developing pneumo siena in the appropriate clinical setting. Electronically signed by: Kade Joseph MD 05/12/2018 1:42 AM EDT
[2018-05-12] MEDS ORDERED: Piperacil/Tazo 4.5 GM Premix 4.5 GM/100 ML BAG IV.SIG ONE (02:36)
[2018-05-12] MEDS ORDERED: Non-Formulary Drug (Oxycodone [Oxycodone] 30 MG) PO PRN (03:07)
[2018-05-12] MEDS ORDERED: Acetaminophen 325 MG Tablet PO PRN (03:08)
[2018-05-12] MEDS ORDERED: Bisacodyl 10 MG Supp RECTAL PRN (03:08)
--- NOTE | 2018-05-12 03:21 | ED ---
HPI General Chief complaint: Weakness Stated complaint: SMITH INLET FIRE/RESC/WEAKNESS Time Seen by Provider: 05/12/18 00:48 Source: patient, EMS and RN notes reviewed Mode of arrival: EMS History of Present Illness HPI narrative: 73yF brought in by EMS for weakness. The patient had a CVA 2-3 weeks ago (hospitalized at [facility]) with residual left-sided weakness; within the past week, she was started on medical marijuana for severe left sided pain following her stroke. She says that since she started using the marijuana, she has had generalized weakness and feels "lousy". Denies fever but admits to chills, admits to non-productive cough and nausea but denies chest pain, vomiting, or dysuria. She says that she had "double pneumonia" while at [facility]. On EMS arrival, she was found to have a BP of 70/40. Related Data Home Medications Medication Instructions Recorded Confirmed aspirin [Aspir-81] 81 mg PO DAILY 05/12/18 05/12/18 atorvastatin 10 mg PO DAILY 05/12/18 05/12/18 doxylamine succinate [Unisom 25 mg PO DAILY 05/12/18 05/12/18 (doxylamine)] folic acid 1 mg PO DAILY 05/12/18 05/12/18 gabapentin 800 mg PO TID 05/12/18 05/12/18 methocarbamol 750 mg PO TID 05/12/18 05/12/18 oxycodone 30 mg PO Q4-6H PRN 05/12/18 05/12/18 Allergies Allergy/AdvReac Type Severity Reaction Status Date / Time No Known Allergies Allergy Unverified 05/12/18 01:29 Review of Systems Except as stated in HPI: all other systems reviewed are negative Constitutional Denies fever(s) and Reports weakness Cardiovascular Denies chest pain Respiratory Reports cough Gastrointestinal Reports nausea Genitourinary Denies dysuria Musculoskeletal Denies back pain Neurologic Denies confusion Psychiatric Denies confusion [facility] History History Provided By: Patient Medical History Medical History Back pain (Acute) CVA (cerebral vascular accident) (Acute) Heart attack (Acute) Surgical History Surgical History H/O neck surgery (Acute) History of back surgery (Acute) Social History Social History Smoking Status: Current every day smoker Tobacco Type: Cigarettes How Often Do You Have a Drink Containing Alcohol: Never Recent Travel in [facility] within the Last 8 Weeks: No Recent Out of Country Travel within the Last 8 Weeks: No Substance Abuse Detail Other: Substance Use Type Other:: MEDICAL MARIJUANA Route Used Substance Abuse: By Mouth Immunization History Tetanus Immunization: Unsure Hx Influenza Vaccine This Season: Yes Exam Const Other: Frail, no acute distress HENMT Head: normocephalic and atraumatic Face and sinus: normal facial exam Other: Mucosa dry Eyes General: appearance normal, both eyes and all related structures Pupils: PERRL Chest Chest: normal inspection of the chest Resp Effort & Inspection: normal respiratory effort Auscultation: no rhonchi and no wheezes Cardio Rate: regular rate Rhythm: regular rhythm Other: Initial BP on arrival to ED 90s/50s, thready radial pulses GI Inspection: non-distended Palpation: soft and nontender Skin General: no rashes or lesions noted Other: Poor skin turgor Neuro General: alert, awake and oriented x3 Other: Motor strength 5/5 in RUE, RLE; 3+/5 in LUE/ LLE (new baseline as per patient) Sensation intact to all extremities No facial droop or slurred speech Alert and oriented x 3 Psych Affect: normal affect Course Initial Documented Vital Signs Temperature 98.1 F 05/12/18 01:02 Pulse Rate 76 05/12/18 01:02 Respiratory Rate 16 05/12/18 01:02 Blood Pressure 101/39 L 05/12/18 01:02 Pulse Oximetry 97 05/12/18 01:02 Last Documented Vital Signs Temperature 98.2 F 05/12/18 03:10 Pulse Rate 76 05/12/18 03:10 Respiratory Rate 16 05/12/18 03:10 Blood Pressure 108/46 L 05/12/18 03:10 Pulse Oximetry 97 05/12/18 01:02 Medical Decision Making MDM Narrative Medical decision making narrative: Assessment: 73yF presenting with hypotension and generalized weakness Plan: EKG and monitor IV fluids Labs CXR UA Reassess Addendum: Patient found to have RLL infiltrate. BP responded to 1st liter of fluid but decreased after bolus finished; 2nd liter hung for full 30 cc/kg bolus. Labs show mild leukocytosis and acute kidney injury. This patient cannot go home as she has hypotension and pneumonia with recent hospitalization (HAP); she will need IV fluids, antibiotics, and re-evaluation at frequent intervals. I discussed this plan with the patient and her caregiver, who understand and agree. Case discussed with Dr. Chirinos of [facility]. Medical Records Medical records reviewed: Yes I reviewed the patient's medical records. Lab Data Lab results reviewed: Yes I reviewed the patient's lab results. Result diagrams: 05/12/18 00:50 05/12/18 00:50 Lab Results 05/12/18 05/12/18 05/12/18 Range/Units 00:50 00:50 01:25 CBC w Diff Auto diff final WBC 11.9 H (4.0-11.0) th/mm3 RBC 4.18 (4.00-5.30) mil/mm3 Hgb 13.0 (11.6-15.3) gm/dL Hct 38.2 (35.0-46.0) % MCV 91.3 (80.0-100.0) fL MCH 31.0 (27.0-34.0) pg MCHC 33.9 (32.0-36.0) % RDW 13.7 (11.6-17.2) % Plt Count 293 (150-450) th/mm3 MPV 8.6 (7.0-11.0) fL Neut % (Auto) 85.8 H (16.0-70.0) % Lymph % (Auto) 8.7 L (9.0-44.0) % [place] % (Auto) 4.5 (0.0-8.0) % Eos % (Auto) 0.4 (0.0-4.0) % Baso % (Auto) 0.6 (0.0-2.0) % Neut # (Auto) 10.3 H (1.8-7.7) th/mm3 Lymph # (Auto) 1.0 (1.0-4.8) th/mm3 [place] # (Auto) 0.5 (0.0-0.9) th/mm3 Eos # (Auto) 0.0 (0.0-0.4) th/mm3 Baso # (Auto) 0.1 (0.0-0.2) th/mm3 WBC Differential . Differential Comment . Sodium 138 (136-145) meq/L Potassium 4.2 (3.5-5.1) meq/L Chloride 103 (98-107) meq/L Carbon Dioxide 28.7 (21.0-32.0) meq/L Anion Gap 6 (5-15) meq/L BUN 8 (7-18) mg/dL Creatinine 1.30 H (0.50-1.00) mg/dL Estimated GFR 40 L (>89) mL/min Random Glucose 135 H (74-106) mg/dL Calcium 9.2 (8.5-10.1) mg/dL Total Bilirubin 0.3 (0.2-1.0) mg/dL AST 19 (15-37) U/L ALT 17 (10-53) U/L Alkaline Phosphatase 94 (45-117) U/L Total Protein 6.9 (6.4-8.2) g/dL Albumin 3.6 (3.4-5.0) g/dL Urine Color Yellow (Yellw/Straw) Urine Clarity Clear (Clear) Urine pH 6.5 (5.0-8.5) Ur Specific [place] 1.010 (1.002-1.035) Urine Protein Negative (Neg-Trace) mg/dL Urine Glucose (UA) Negative (Negative) mg/dL Urine Ketones Trace H (Negative) mg/dL Urine Occult Blood Negative (Negative) Urine Nitrate Negative (Negative) Urine Bilirubin Negative (Negative) Urine Urobilinogen 0.2 (Less than 2) mg/dL Ur Leukocyte Esterase Negative (Negative) Urine RBC 0-3 (0-3) /hpf Ur Squamous Epith Cells 0-5 (0-5) /hpf Amorphous Sediment Occ H (None) /hpf Micro UA Comment Cath-culture not ind Urine Culture Comments Cath-cult not ind Imaging Data Radiologist's impression: Chest X-Ray 05/12/18 00:54 CONCLUSION: 1. Mild patchy airspace disease in the medial right lower lung zone concerning for developing pneumonia in the appropriate clinical setting. ECG Data Attestation: I personally reviewed and interpreted this ECG as follows: Interpretation: Rate: 70 BPM Rhythm: Sinus [place]: Normal Intervals: Normal intervals, no blocks, QTc 438 ms Q waves: None T waves: Upright, no inversions ST segments: No elevations or depressions Impression: Non-specific EKG, no changes as compared to EKG from 01/01/2017. Discharge Plan Discharge Disposition Patient Disposition: 30 Still Patient Discharge Condition Condition: Stable Discharge Details Diagnosis: HCAP (healthcare-associated pneumonia), Hypotension, ISIAH (acute kidney injury) Physicians Team ED Provider: Autumn Acosta Primary Care Provider: Yusuf Hummel Attending Provider: Flora Chirinos ED Status: Admitted Observation Patient
[2018-05-12] MEDS: Sod Chloride 0.9% Inj 1,000 ML IV.CONT SCH ×2 (04:23→14:00)
--- NOTE | 2018-05-12 08:34 | P.HP ---
History of Present Illness Primary Care Physician: Yusuf Hummel MD Chief Complaint: Weakness History of Present Illness: This is a 73-year-old female patient with a known medical history of dementia, recent CVA 3 weeks ago, CAD with history of HI who presented to the ED with generalized weakness, vomiting and hallucinating for the past week. Patient is a poor historian, information obtained from caregiver, Nancy Campo. Supposedly patient was hospitalized at [facility] 3 weeks ago for CVA as well as UTI. Patient does have left-sided residual weakness secondary to stroke. It should also be noted that patient was diagnosed with bilateral pneumonia roughly 2 months ago during prior hospitalization and not during her recent hospitalization 3 weeks ago. Patient has been started on medical marijuana 4 months ago for pain as well opiates for many years. There are no reports of fever, although caregiver does state that patient had some chills as well as nonproductive cough and nausea yesterday afternoon. Upon presentation to the ED her blood pressure was 70/40. Patient also presented with mild leukocytosis, acute kidney injury and dehydration. Upon assessment today, patient is lying in bed in no apparent distress. She does not verbalize nor participate in conversation. Per caregiver, at baseline patient does have underlying dementia with severity waxing and waning by the day, and is usually able to carry on a conversation. Requesting records from recent hospitalization at [facility]. - Diagnosis (1) HCAP (healthcare-associated pneumonia) (2) Hypotension (3) ISIAH (acute kidney injury) Review of Systems unobtainable due to mental condition PMFSH - History History Provided By: Patient - Medical History Medical History: Medical History (Last Reviewed 05/12/18 @ 06:51 by Estephanie Latif) Back pain CVA (cerebral vascular accident) Heart attack - Surgical History Surgical History: Surgical History (Last Updated 05/12/18 @ 08:59 by Gregoria Guajardo) H/O neck surgery History of back surgery Previous back surgery - Tobacco History Tobacco Use In Past 30 Days: Yes Smoking Status: Current every day smoker Tobacco Type: Cigarettes - Alcohol History How Often Do You Have a Drink Containing Alcohol: Never - Substance Use Type Other Type: MEDICAL MARIJUANA Route Used: By Mouth - Travel History Recent Travel in the [place] Within the Last 8 Weeks: No Recent Travel Out of the Country Within the Last 8 Weeks: No - Immunization History Tetanus Immunization: Unsure Hx Influenza Vaccine This Season: Yes Medications and Allergies Active Medications: Active Medications Acetaminophen (Tylenol) 650 mg PO Q4H PRN PRN Reason: Temp > 100.4 Al Hydroxide/Mg Hydroxide (Milk Of Magnesia Liq) 30 ml PO Q12H PRN PRN Reason: Mild Constipation Aspirin (Ecotrin) 81 mg PO DAILY JESSA Bisacodyl (Dulcolax Supp) 10 mg RECTAL DAILY PRN PRN Reason: SEVERE CONSITIPATION Gabapentin (Neurontin) 300 mg PO TID JESSA Sodium Chloride (Ns Inj) 1,000 mls @ 100 mls/hr IV.CONT .Q10H JESSA Last Admin: 05/12/18 04:23 Dose: 100 mls/hr Piperacillin/Tazobactam/Dextrose (Zosyn 4.5 Gm Premix) 4.5 gm in 100 mls @ 200 mls/hr IV.SIG Q6H [facility] Lactulose (Lactulose Liq) 30 ml PO DAILY PRN PRN Reason: SEVERE CONSITIPATION Ondansetron HCl (Zofran Inj) 4 mg IV.PUSH Q6H PRN PRN Reason: NAUSEA OR VOMITING Oxycodone HCl (Roxicodone) 30 mg PO Q4H PRN PRN Reason: BACK PAIN Senna/Docusate Sodium (Chyna-Colace) 1 tab PO BID JESSA Sennosides (Senokot) 17.2 mg PO Q12H PRN PRN Reason: Moderate Constipation Temazepam (Restoril) 15 mg PO HS PRN PRN Reason: INSOMNIA Allergies Allergy/AdvReac Type Severity Reaction Status Date / Time No Known Allergies Allergy Unverified 05/12/18 01:29 Home Medications Medication Instructions Recorded Confirmed Type Medical Marijuana 05/12/18 History aspirin [Aspir-81] 81 mg PO DAILY 05/12/18 05/12/18 History atorvastatin 10 mg PO DAILY 05/12/18 05/12/18 History doxylamine succinate [Unisom 25 mg PO DAILY 05/12/18 05/12/18 History (doxylamine)] folic acid 1 mg PO DAILY 05/12/18 05/12/18 History gabapentin 800 mg PO TID 05/12/18 05/12/18 History methocarbamol 750 mg PO TID 07/29/18 07/29/18 History oxycodone 30 mg PO Q4-6H PRN 05/12/18 05/12/18 History Exam Vital signs: Vital Signs 05/12/18 01:02 05/12/18 02:00 05/12/18 03:10 Temperature 98.1 F 98.2 F Pulse Rate 76 76 Respiratory Rate 16 16 Blood Pressure 101/39 L 89/34 L 108/46 L Pulse Oximetry 97 05/12/18 03:44 05/12/18 04:00 05/12/18 04:48 Temperature 96.8 F L Pulse Rate 76 82 85 Respiratory Rate 18 20 Blood Pressure 105/48 L 134/60 Pulse Oximetry 94 L 05/12/18 08:00 Temperature 98.7 F Pulse Rate 95 H Respiratory Rate 20 Blood Pressure 147/71 H Pulse Oximetry 97 Intake & Output 05/11/18 05/12/18 05/12/18 18:59 06:59 18:59 Intake Total 1100 / 1100 1000 / 1000 Balance 1100 / 1100 1000 / 1000 Weight 62.5 kg Intake: IV 1100 / 1100 1000 / 1000 Zosyn 4.5 GM Premix 4.5 gm In 100 / 100 100 ml @ 200 mls/hr IV.SIG ONCE ONE Rx#:[id number] NS Inj 1,000 ML @ Wide Open IV. 1000 / 1000 1000 / 1000 SIG BOLUS ONE Rx#:[id number] Narrative: GENERAL: Well-developed, well-nourished patient in NAD. Lying in bed lethargic. Does arouse to voice, opens her eyes and falls asleep less than 10 seconds. SKIN: Warm and dry. No rash. HEAD: Normocephalic. Atraumatic. EYES: Pupils equal and round. No scleral icterus. No injection or drainage. ENT: No nasal bleeding or discharge. Mucous membranes pink and moist. NECK: Supple. Trachea midline. CARDIOVASCULAR: Regular rate and rhythm. S1, S2 noted. No murmur appreciated. RESPIRATORY: No accessory muscle use. Coarse breath sounds throughout. Breath sounds equal bilaterally. GASTROINTESTINAL: Abdomen soft, non-tender, nondistended. Normoactive bowel sounds x4. MUSCULOSKELETAL: No obvious deformities. Extremities without clubbing, cyanosis , or edema. NEUROLOGICAL: Lethargic. Motor grossly within normal limits. 4/5 muscle strength in left upper and lower extremities. 5 out of 5 muscle strength in right upper and lower extremities. Patient is not verbalizing at this time. Results - Labs CBC & Chem 7: 05/12/18 00:50 05/12/18 00:50 Labs: Laboratory Results - last 24 hr 05/12/18 05/12/18 05/12/18 00:50 00:50 01:25 CBC w Diff Auto diff final WBC 11.9 H RBC 4.18 Hgb 13.0 Hct 38.2 MCV 91.3 MCH 31.0 MCHC 33.9 RDW 13.7 Plt Count 293 MPV 8.6 Neut % (Auto) 85.8 H Lymph % (Auto) 8.7 L [place] % (Auto) 4.5 Eos % (Auto) 0.4 Baso % (Auto) 0.6 Neut # (Auto) 10.3 H Lymph # (Auto) 1.0 [place] # (Auto) 0.5 Eos # (Auto) 0.0 Baso # (Auto) 0.1 WBC Differential . Differential Comment . Sodium 138 Potassium 4.2 Chloride 103 Carbon Dioxide 28.7 Anion Gap 6 BUN 8 Creatinine 1.30 H Estimated GFR 40 L Random Glucose 135 H Lactic Acid Calcium 9.2 Total Bilirubin 0.3 AST 19 ALT 17 Alkaline Phosphatase 94 Total Protein 6.9 Albumin 3.6 Urine Color Yellow Urine Clarity Clear Urine pH 6.5 Ur Specific [place] 1.010 Urine Protein Negative Urine Glucose (UA) Negative Urine Ketones Trace H Urine Occult Blood Negative Urine Nitrate Negative Urine Bilirubin Negative Urine Urobilinogen 0.2 Ur Leukocyte Esterase Negative Urine RBC 0-3 Ur Squamous Epith Cells 0-5 Amorphous Sediment Occ H Micro UA Comment Cath-culture not ind Urine Culture Comments Cath-cult not ind 05/12/18 02:45 CBC w Diff WBC RBC Hgb Hct MCV MCH MCHC RDW Plt Count MPV Neut % (Auto) Lymph % (Auto) [place] % (Auto) Eos % (Auto) Baso % (Auto) Neut # (Auto) Lymph # (Auto) [place] # (Auto) Eos # (Auto) Baso # (Auto) WBC Differential Differential Comment Sodium Potassium Chloride Carbon Dioxide Anion Gap BUN Creatinine Estimated GFR Random Glucose Lactic Acid 1.7 Calcium Total Bilirubin AST ALT Alkaline Phosphatase Total Protein Albumin Urine Color Urine Clarity Urine pH Ur Specific [place] Urine Protein Urine Glucose (UA) Urine Ketones Urine Occult Blood Urine Nitrate Urine Bilirubin Urine Urobilinogen Ur Leukocyte Esterase Urine RBC Ur Squamous Epith Cells Amorphous Sediment Micro UA Comment Urine Culture Comments - Imaging Impressions Chest X-Ray 05/12/18 00:54 CONCLUSION: 1. Mild patchy airspace disease in the medial right lower lung zone concerning for developing pneumonia in the appropriate clinical setting. Caprini VTE Risk Assessment Caprini VTE Risk Assessment: Moderate/High Risk (score >= 2) Caprini Risk Assessment Model: Point Value = 1 Point Value = 2 Point Value = 3 Point Value = 5 Age 41-60 Minor surgery BMI > 25 kg/m2 Swollen legs Varicose veins or History of unexplained or recurrent spontaneous Oral contraceptives or hormone replacement Sepsis (< 1 month) Serious lung disease, including pneumonia (< 1 month) Abnormal pulmonary function Acute myocardial infarction Congestive heart failure (< 1 month) History of inflammatory bowel disease Medical patient at bed rest Age 61-74 Arthroscopic surgery Major open surgery (> 45 min) Laparoscopic surgery (> 45 min) Malignancy Confined to bed (> 72 hours) Immobilizing plaster cast Central venous access Age >= 75 History of VTE Family history of VTE Factor V Leiden Prothrombin [id number] Lupus anticoagulant Anticardiolipin antibodies Elevated serum homocysteine Heparin-induced thrombocytopenia Other congenital or acquired thrombophilia Stroke (< 1 month) Elective arthroplasty Hip, pelvis, or leg fracture Acute spinal cord injury (< 1 month) Prophylaxis Regimen: Total Risk Factor Score Risk Level Prophylaxis Regimen 0-1 Low Early ambulation 2 Moderate Order ONE of the following: *Sequential Compression Device (SCD) *Heparin 5000 units SQ BID 3-4 Higher Order ONE of the following medications: *Heparin 5000 units SQ TID *Enoxaparin/Lovenox 40 mg SQ daily (WT < 150 kg, CrCl > 30 mL/min) *Enoxaparin/Lovenox 30 mg SQ daily (WT < 150 kg, CrCl > 10-29 mL/min) *Enoxaparin/Lovenox 30 mg SQ BID (WT < 150 kg, CrCl > 30 mL/min) AND/OR *Sequential Compression Device (SCD) 5 or more Highest Order ONE of the following medications: *Heparin 5000 units SQ TID (Preferred with Epidurals) *Enoxaparin/Lovenox 40 mg SQ daily (WT < 150 kg, CrCl > 30 mL/min) *Enoxaparin/Lovenox 30 mg SQ daily (WT < 150 kg, CrCl > 10-29 mL/min) *Enoxaparin/Lovenox 30 mg SQ BID (WT < 150 kg, CrCl > 30 mL/min) AND *Sequential Compression Device (SCD) Assessment and Plan - Assessment (1) HCAP (healthcare-associated pneumonia) Code(s): J18.9 - Pneumonia, unspecified organism Status: Acute (2) Hypotension Code(s): I95.9 - Hypotension, unspecified Status: Acute (3) ISIAH (acute kidney injury) Code(s): N17.9 - Acute kidney failure, unspecified Status: Acute - Plan This is a 73-year-old female patient with a known medical history of dementia, recent CVA 3 weeks ago, CAD with history of HI who presented to the ED with generalized weakness, vomiting and hallucinating for the past week. Healthcare associated pneumonia versus aspiration pneumonia Diagnosis of pneumonia 2 months ago during hospitalization Recent hospitalization for CVA -Chest x-ray reviewed, show a right lower lobe infiltrate. This could be secondary to aspiration. -There are reports that patient has been lethargic 1 week as well as coughing. At the time of assessment patient is lethargic. -Requested records from prior hospitalization at [facility]. RN assisting. -For now will place on Zosyn. White blood cell 11.9. Afebrile. UA negative. Monitor for any signs of infection. Blood cultures are pending, follow. -Ensure hydration, continue IV fluid. Received 2 L NS bolus in ED. Acute kidney injury suspect secondary to dehydration and vomiting -Creatinine 1.3 on presentation. Continue IV fluids. Monitor BMP. -Avoid nephrotoxins. -Intake and output. Recent CVA 3 weeks ago -Requested records from [facility] for recent diagnosis of CVA. There is some residual left-sided weakness. Unsure of what type of stroke patient suffered from. Will follow. -Physical therapy consulted, evaluation pending. -Case management consulted, assisting with discharge planning. Patient does have a caregiver at her home, has been with her for many years now. -Patient is on aspirin at home, will hold for now unable to take anything by mouth. -Speech therapy consulted, assess for aspiration when more awake. History of CAD with HI -EKG reviewed, sinus rhythm with first-degree AV block, controlled heart rate. -Cardiac telemetry, monitor for any arrhythmias. History of dementia: Supportive care. Chronic pain: Patient is on oxycodone as well as methocarbamol at home. Patient is unable to take p.o. medications at this time. Will resume once more awake. Monitor lethargy. DVT prophylaxis: SCDs.
[2018-05-12] MEDS: Senna/Docusate Sodium 8.6/50 MG Tablet PO SCH ×2 (09:15→20:26)
[2018-05-12] MEDS: Gabapentin 300 MG Capsule PO SCH ×3 (09:15→18:01)
[2018-05-12] MEDS: Piperacil/Tazo 4.5 GM Premix 4.5 GM/100 ML BAG IV.SIG SCH ×3 (09:17→20:26)
--- NOTE | 2018-05-12 14:05 | CT ---
EXAM DATE: 05/12/2018 1:53 PM EDT AGE/SEX: 73 years / Female INDICATIONS: Generalized weakness and hallucinating. CLINICAL DATA: This is the patient's initial encounter. Patient reports that signs and symptoms have been present for 1 week and indicates a pain score of 0/10. MEDICAL/SURGICAL HISTORY: Hypertension. Cardiovascular disease. Cerebrovascular disease. Hysterec veronica. Appendectomy. Back surgery. RADIATION DOSE: 65.17 CTDI (mGy) [place] [facility] [place]. . TECHNIQUE: CT of the head without contrast. Using automated exposure control and adjustment of the mA and/or kV according to patient size, radiation dose was kept as low as reasonably achievable to ob tain optimal diagnostic quality images. DICOM format image data is available electronically for revi ew and comparison. FINDINGS: There is no evidence for intracranial hemorrhage, mass effect, mass lesions, edema, or extra-axial fl uid collections. There are no signs of acute infarction for technique. The diffusion portion is unr emarkable. Moderate degree of brain atrophy is seen. Slight periventricular white matter changes are seen nonspecific mostly consistent with chronic small vessel ischemic changes. There is encephalomal acia right temporal parietal and occipital lobes again identified not changed. CONCLUSION: Chronic small vessel ischemic and atrophic changes, old infarctions on the right not thanh nged. Electronically signed by: Jeferson Chappell MD 05/12/2018 2:03 PM EDT
--- NOTE | 2018-05-12 14:38 | P.DIET ---
Nutritional Evaluation Type of nutrition evaluation: initial Nutrition screening: Weight Loss > 10 lbs Subjective Subjective Comments: Per caregiver, pt has had unintentional wt loss due to poor po intake. Objective - Diagnosis Hypotension, PNA, Dehydration - Objective [place] body weight: 73 kg % IBW: 86 Body Weight Used for Calculations: Actual (62.5kg) Energy Needs - Lower Range (kCal/kg): 28 Energy Needs - Upper Range (kCal/kg): 33 Lower Limit kCal/kg (kCals): 1,750 Upper Limit kCal/kg (kCals): 2,063 Lower Limit Protein Factor (Grams per Kg): 1.1 Upper Limit Protein Factor (Grams per Kg): 1.3 Lower Protein Needs (Protein): 69 Upper Protein Needs (Protein): 81 Fluid Factor (ml/kg): 33 Estimated Fluid Needs (ml): 2,063 Dietitian Reviewed in Medical Record: Current diet, Curent medications, Intake & Output, Labs, Medical history Diet Order: NPO Objective Comments: PMH: Back Pain, CVA, CAD s/p NM Meds include: Neurontin Labs include: Cr 1.30, Glucose 135 (-) BM Assessment Assessment: Pt at nutritional risk r/t dx, recent wt loss and poor po intake. Pt with dementia and has a 24/7 caregiver. Nutritional assessment as assessed above. Pt is currently NPO until she is alert enought for ST to do a swallow eval. Will monitor diet advancement, po intake, clinical course. Recommendations: PT NPO until able to have swallow evaluation Dietitian to Monitor: Lab values, Diet tolerance, Weight change, PO Intake, Diet advancement, Swallow recommendations, Medical course
[2018-05-12] MEDS: Temazepam 15 MG Capsule PO PRN (22:00)
[2018-05-13] MEDS: Sod Chloride 0.9% Inj 1,000 ML IV.CONT SCH ×3 (00:42→20:22)
[2018-05-13] MEDS: Piperacil/Tazo 4.5 GM Premix 4.5 GM/100 ML BAG IV.SIG SCH ×4 (03:59→21:54)
[2018-05-13 06:28] LABS: Baso % (Auto) 0.3 % (0.0-2.0); Eos # (Auto) 0.1 th/mm3 (0.0-0.4); Eos % (Auto) 0.8 % (0.0-4.0); Hematocrit 34.7 % (35.0-46.0); Hemoglobin 11.7 gm/dL (11.6-15.3); Lymph # (Auto) 1.3 th/mm3 (1.0-4.8); Lymph % (Auto) 8.4 % (9.0-44.0); Mean Corpuscular HGB Conc 33.8 % (32.0-36.0); Mean Corpuscular Hemoglobin 31.2 pg (27.0-34.0); Mean Corpuscular Volume 92.5 fL (80.0-100.0); Mean Platelet Volume 8.9 fL (7.0-11.0); Mono # (Auto) 1.2 th/mm3 (0.0-0.9); Mono % (Auto) 7.8 % (0.0-8.0); Neut # (Auto) 12.8 th/mm3 (1.8-7.7); Neut % (Auto) 82.7 % (16.0-70.0); Platelet Count 202 th/mm3 (150-450); Red Blood Count 3.75 mil/mm3 (4.00-5.30); Red Cell Distribution Width 12.9 % (11.6-17.2); White Blood Count 15.4 th/mm3 (4.0-11.0)
[2018-05-13 06:30] LABS: Chloride 109 meq/L (98-107); Potassium 3.8 meq/L (3.5-5.1); Sodium 141 meq/L (136-145)
[2018-05-13 06:33] LABS: Calcium 8.5 mg/dL (8.5-10.1)
[2018-05-13 06:42] LABS: Alanine Aminotransferase 19 U/L (10-53); Albumin 2.8 g/dL (3.4-5.0); Alkaline Phosphatase 82 U/L (45-117); Anion Gap 7 meq/L (5-15); Aspartate Aminotransferase 24 U/L (15-37); Blood Urea Nitrogen 8 mg/dL (7-18); Carbon Dioxide 25.4 meq/L (21.0-32.0); Glomerular Filtration Rate 79 mL/min (>89); Glucose,Random 85 mg/dL (74-106); Total Protein 6.1 g/dL (6.4-8.2)
[2018-05-13 07:02] LABS: Eosinophils 2 % (0-4); Lymphocytes 12 % (9-44); Monocytes 11 % (0-8); Platelet Estimate Normal (Normal); Platelet Morphology Normal (Normal)
[2018-05-13] MEDS: Senna/Docusate Sodium 8.6/50 MG Tablet PO SCH ×2 (08:28→21:56)
[2018-05-13] MEDS: Gabapentin 300 MG Capsule PO SCH ×3 (08:28→18:09)
[2018-05-13] MEDS ORDERED: DOXYLAMINE SUCCINATE 25 MG PO SCH (09:30)
--- NOTE | 2018-05-13 09:33 | P.PN ---
Subjective Interval history: Follow sepsis, pneumonia, altered mental status. Patient seen and examined, lying in bed awake and alert. Following commands appropriately, will some residual upper and lower right sided weakness. This morning patient relates the lethargy to her medical marijuana, "every time she takes it she is out of it." TMAX overnight is 100.7. Continue on IV antibiotics. Patient is requesting for FC to be removed, will attempt and monitor for retention. VSS. Physical Exam Vital signs: Vital Signs 05/12/18 12:00 05/12/18 16:00 05/12/18 20:00 Temperature 100.7 F H 98.1 F 98.6 F Pulse Rate 83 78 73 Respiratory Rate 20 20 16 Blood Pressure 117/56 L 115/54 L 98/50 L Pulse Oximetry 93 L 97 97 05/13/18 00:00 05/13/18 04:00 Temperature 99.8 F H 99.6 F Pulse Rate 75 77 Respiratory Rate 16 16 Blood Pressure 117/57 L 113/60 Pulse Oximetry 96 98 Intake & Output 05/12/18 05/13/18 05/13/18 18:59 06:59 18:59 Intake Total 2300 / 2300 1620 / 1620 Output Total 350 / 350 Balance 2300 / 2300 1270 / 1270 Weight 62.5 kg 62.5 kg Intake: IV 2300 / 2300 1200 / 1200 NS Inj 1,000 ML @ 100 mls/hr IV 1000 / 1000 1000 / 1000 .CONT .Q10H JESSA Rx#:[id number] Ofirmev Inj 1,000 mg In 100 ml 100 / 100 @ 400 mls/hr IV.SIG Q6H PRN Rx# :[id number] Zosyn 4.5 GM Premix 4.5 gm In 200 / 200 200 / 200 100 ml @ 200 mls/hr IV.SIG Q6H JESSA Rx#:[id number] NS Inj 1,000 ML @ Wide Open IV. 1000 / 1000 SIG BOLUS ONE Rx#:[id number] Oral 420 / 420 Output: Urine 350 / 350 Other: # Voids 1,750 Weight On Admission 62.5 kg Narrative: GENERAL: Well-developed, well-nourished patient in NAD. Lying in bed awake. Alert and oriented to self, time and place. Mild dementia with confusion to recent events. SKIN: Warm and dry. No rash. HEAD: Normocephalic. Atraumatic. EYES: Pupils equal and round. No scleral icterus. No injection or drainage. ENT: No nasal bleeding or discharge. Mucous membranes pink and moist. NECK: Supple. Trachea midline. CARDIOVASCULAR: Regular rate and rhythm. S1, S2 noted. No murmur appreciated. RESPIRATORY: No accessory muscle use. CTA. Breath sounds equal bilaterally. GASTROINTESTINAL: Abdomen soft, non-tender, nondistended. Normoactive bowel sounds x4. MUSCULOSKELETAL: No obvious deformities. Extremities without clubbing, cyanosis , or edema. NEUROLOGICAL: Awake and alert. Motor grossly within normal limits. 4/5 muscle strength in left upper and lower extremities. 5 out of 5 muscle strength in right upper and lower extremities. - Urinary Catheter Management Indwelling Urethral Catheter Cath placed during this visit: yes Reason for continuing: Acute urinary retention Insertion date: 05/12/18 Insertion time: 12:05 Results - Labs CBC & Chem 7: 05/13/18 05:30 05/13/18 05:30 Laboratory Results - last 24 hr 05/13/18 05/13/18 05:30 05:30 CBC w Diff Slide review pending WBC 15.4 H RBC 3.75 L Hgb 11.7 Hct 34.7 L MCV 92.5 MCH 31.2 MCHC 33.8 RDW 12.9 Plt Count 202 D MPV 8.9 Neut % (Auto) 82.7 H Lymph % (Auto) 8.4 L [place] % (Auto) 7.8 Eos % (Auto) 0.8 Baso % (Auto) 0.3 Neut # (Auto) 12.8 H Lymph # (Auto) 1.3 [place] # (Auto) 1.2 H Eos # (Auto) 0.1 Baso # (Auto) 0.0 WBC Differential Manual diff final Seg Neuts % (Manual) 69 Band Neuts % (Manual) 6 Lymphocytes % (Manual) 12 Monocytes % (Manual) 11 H Eosinophils % (Manual) 2 Abs Neuts (Manual) 11.6 H Differential Comment . Platelet Estimate Normal Platelet Morphology Normal Sodium 141 Potassium 3.8 Chloride 109 H Carbon Dioxide 25.4 Anion Gap 7 BUN 8 Creatinine 0.72 Estimated GFR 79 L Random Glucose 85 Calcium 8.5 Total Bilirubin 0.6 AST 24 ALT 19 Alkaline Phosphatase 82 Total Protein 6.1 L D Albumin 2.8 L D Microbiology 05/12/18 02:45 Blood - Peripheral Anaerobic Blood Culture - Final QNS - See aerobic report. - Imaging Impressions Head CT 05/12/18 00:00 CONCLUSION: Chronic small vessel ischemic and atrophic changes, old infarctions on the right not changed. Assessment and Plan - Assessment (1) HCAP (healthcare-associated pneumonia) Code(s): J18.9 - Pneumonia, unspecified organism Status: Acute (2) Hypotension Code(s): I95.9 - Hypotension, unspecified Status: Acute (3) ISIAH (acute kidney injury) Code(s): N17.9 - Acute kidney failure, unspecified Status: Acute - Plan This is a 73-year-old female patient with a known medical history of dementia, recent CVA 3 weeks ago, CAD with history of [place] who presented to the ED with generalized weakness, vomiting and hallucinating for the past week. Sepsis Healthcare associated pneumonia versus aspiration pneumonia Diagnosis of pneumonia 2 months ago during hospitalization Recent hospitalization for CVA 3 weeks ago at -Met criteria with fever, tachycardia, leukocytosis, likely source pneumonia. Normal lactic acid. -Chest x-ray reviewed, shows a right lower lobe infiltrate. This could be secondary to aspiration. -There are reports that patient has been lethargic 1 week as well as coughing. Patient is awake today, tolerating pured diet. -Requested records from prior hospitalization at [facility]. RN assisting. -Continue Zosyn. White blood cell 11.9-->15. T-max 100.7. UA negative. Monitor for any signs of infection. Blood cultures are pending, follow. -Ensure hydration, continue IV fluid. Received 2 L NS bolus in ED. Acute kidney injury suspect secondary to dehydration and vomiting. Improved. -Creatinine 1.3 on presentation -->0.7. Continue IV fluids. Monitor BMP. -Avoid nephrotoxins. -Intake and output. Recent CVA 3 weeks ago -Requested records from [facility] for recent diagnosis of CVA. There is some residual left-sided weakness. -Physical therapy consulted, recommendations for rehab. Patient states she has adequate therapy at home. Will continue to monitor progress. -Case management consulted, assisting with discharge planning. Patient does have a caregiver at her home, has been with her for many years now. -Patient is on aspirin at home, continue. -Speech therapy consulted, pureed diet. -Head CT was done and reviewed showing chronic small vessel ischemic and atrophic changes, old infarctions on the right not changed. History of CAD with [place] -EKG reviewed, sinus rhythm with first-degree AV block, controlled heart rate. -Cardiac telemetry, monitor for any arrhythmias. History of dementia -It should be noted that patient is on a high amount of gabapentin as well as narcotics at home. This could be contributing to her lethargy. -This morning patient relates the lethargy to her medical marijuana, "everytime she takes it she is out of it." Will adjust doses upon discharge. Chronic pain: Patient is on oxycodone as well as methocarbamol at home. Will resume. Monitor for lethargy. DVT prophylaxis: SCDs. Discharge Planning: Awaiting clinical improvement with sepsis, fever and leukocytosis. Disposition will be rehab. CM assisting.
[2018-05-13] MEDS: Folic Acid 1 MG Tablet PO SCH (09:57)
[2018-05-13] MEDS: Methocarbamol 500 MG Tablet PO SCH ×3 (09:57→18:09)
--- NOTE | 2018-05-13 12:00 | ECG ---
Date Performed: 05/12/2018 Time Performed: 00:59:17 PTAGE: 73 years EKG: Sinus rhythm WITH FIRST DEGREE AV BLOCK Nonspecific ST and T wave abnormalities ABNORMAL ECG PREVIOUS TRACING : 01/01/2017 18.43 DOCTOR: Ronaldo Beaver Interpretating Date/Time 05/13/2018 12:00:31
[2018-05-14] MEDS: Piperacil/Tazo 4.5 GM Premix 4.5 GM/100 ML BAG IV.SIG SCH ×2 (03:47→10:15)
[2018-05-14 06:39] LABS: Baso # (Auto) 0.1 th/mm3 (0.0-0.2); Baso % (Auto) 0.4 % (0.0-2.0); Eos # (Auto) 0.1 th/mm3 (0.0-0.4); Eos % (Auto) 0.8 % (0.0-4.0); Hematocrit 33.4 % (35.0-46.0); Hemoglobin 11.1 gm/dL (11.6-15.3); Mean Corpuscular HGB Conc 33.1 % (32.0-36.0); Mean Corpuscular Hemoglobin 30.6 pg (27.0-34.0); Mean Corpuscular Volume 92.5 fL (80.0-100.0); Mean Platelet Volume 8.7 fL (7.0-11.0); Mono # (Auto) 1.1 th/mm3 (0.0-0.9); Mono % (Auto) 9.1 % (0.0-8.0); Neut # (Auto) 10.3 th/mm3 (1.8-7.7); Neut % (Auto) 81.7 % (16.0-70.0); Platelet Count 194 th/mm3 (150-450); Red Blood Count 3.62 mil/mm3 (4.00-5.30); Red Cell Distribution Width 12.7 % (11.6-17.2); White Blood Count 12.6 th/mm3 (4.0-11.0)
[2018-05-14] MEDS: Sod Chloride 0.9% Inj 1,000 ML IV.CONT SCH ×2 (07:17→17:55)
[2018-05-14] MEDS: Senna/Docusate Sodium 8.6/50 MG Tablet PO SCH ×3 (08:21→21:50)
[2018-05-14] MEDS: Methocarbamol 500 MG Tablet PO SCH ×3 (08:21→17:48)
[2018-05-14] MEDS: Folic Acid 1 MG Tablet PO SCH (08:22)
[2018-05-14] MEDS: Gabapentin 300 MG Capsule PO SCH ×3 (08:23→17:48)
--- NOTE | 2018-05-14 10:12 | P.PN ---
Subjective Interval history: 73-year-old female who seen in follow-up today for sepsis, pneumonia. Patient sitting in chair and resting comfortably. Patient still with fever with T-max 100.6. Patient states that she is doing well. She is requesting nicotine patch. Vital signs remained stable. Physical Exam Vital signs: Vital Signs 05/13/18 12:00 05/13/18 16:00 05/13/18 16:26 Temperature 97.8 F 100.0 F H Pulse Rate 66 83 Respiratory Rate 17 16 18 Blood Pressure 123/56 L 128/60 Pulse Oximetry 96 96 05/13/18 18:39 05/13/18 19:15 05/13/18 20:00 Temperature 100.9 F H Pulse Rate 74 Respiratory Rate 18 Blood Pressure Pulse Oximetry 05/14/18 00:37 05/14/18 04:00 05/14/18 04:52 Temperature 100.6 F H 100.4 F H Pulse Rate 69 81 Respiratory Rate 20 21 21 Blood Pressure 147/66 H 131/60 Pulse Oximetry 95 95 05/14/18 08:00 Temperature 98.8 F Pulse Rate 65 Respiratory Rate 16 Blood Pressure 138/63 Pulse Oximetry 94 L Intake & Output 05/13/18 05/14/18 05/14/18 18:59 06:59 18:59 Intake Total 1500 / 1500 2560 / 2560 Output Total 2300 / 2300 Balance 1500 / 1500 260 / 260 Intake: IV 1200 / 1200 2200 / 2200 NS Inj 1,000 ML @ 100 mls/hr IV 1000 / 1000 2000 / 2000 .CONT .Q10H JESSA Rx#:[id number] Zosyn 4.5 GM Premix 4.5 gm In 200 / 200 200 / 200 100 ml @ 200 mls/hr IV.SIG Q6H JESSA Rx#:[id number] Oral 300 / 300 360 / 360 Output: Urine 2300 / 2300 Narrative: GENERAL: Well-developed, well-nourished, in no acute distress. alert and orientated HEENT: Head is normocephalic without any lesions or masses noted. Facial features patient with mild lip and facial droop. Eyes: Extraocular muscles are intact. Conjunctivae were clear. NECK: Supple without any masses. Trachea midline no deviation. No JVD, no bruits are appreciated CARDIAC: Regular rhythm, regular rate. S1/S2 are heard. No murmurs gallops or rubs. LUNGS: Clear to auscultation bilaterally. No wheeze, rhonchi or rales. No use of accessory muscles on inspiration or expiration. ABDOMEN: Soft, nontender. Nondistended. Bowel sounds heard in all 4 quadrants. No organomegaly or masses. Negative rebound, negative guarding EXTREMITIES: No edema, pulses are equal bilaterally. No cyanosis or clubbing NEUROLOGY: Mood and affect appear appropriate. Patient moving all extremities, does have slight weakness on the left compared to the right. - Urinary Catheter Management Indwelling Urethral Catheter Cath placed during this visit: yes, but has since been removed by the nurse Reason for continuing: Acute urinary retention Insertion date: 05/12/18 Insertion time: 12:05 Removal date: 05/13/18 Removal time: 09:33 Results - Labs CBC & Chem 7: 05/14/18 05:55 05/13/18 05:30 Laboratory Results - last 24 hr 05/14/18 05:55 CBC w Diff Auto diff final WBC 12.6 H RBC 3.62 L Hgb 11.1 L Hct 33.4 L MCV 92.5 MCH 30.6 MCHC 33.1 RDW 12.7 Plt Count 194 MPV 8.7 Neut % (Auto) 81.7 H Lymph % (Auto) 8.0 L Upton % (Auto) 9.1 H Eos % (Auto) 0.8 Baso % (Auto) 0.4 Neut # (Auto) 10.3 H Lymph # (Auto) 1.0 Upton # (Auto) 1.1 H Eos # (Auto) 0.1 Baso # (Auto) 0.1 WBC Differential . Differential Comment . Microbiology 05/12/18 02:40 Blood - Peripheral Aerobic Blood Culture - Preliminary No growth in 1 day 05/12/18 02:40 Blood - Peripheral Anaerobic Blood Culture - Preliminary No growth in 1 day 05/12/18 02:45 Blood - Peripheral Aerobic Blood Culture - Preliminary No growth in 1 day 05/12/18 02:45 Blood - Peripheral Anaerobic Blood Culture - Final QNS - See aerobic report. - Imaging Head CT 05/12/18 00:00 CONCLUSION: Chronic small vessel ischemic and atrophic changes, old infarctions on the right not changed. Chest X-Ray 05/12/18 00:54 CONCLUSION: 1. Mild patchy airspace disease in the medial right lower lung zone concerning for developing pneumonia in the appropriate clinical setting. Assessment and Plan - Assessment (1) HCAP (healthcare-associated pneumonia) Code(s): J18.9 - Pneumonia, unspecified organism Status: Acute (2) Hypotension Code(s): I95.9 - Hypotension, unspecified Status: Acute (3) ISIAH (acute kidney injury) Code(s): N17.9 - Acute kidney failure, unspecified Status: Acute - Plan Sepsis Healthcare associated pneumonia versus aspiration pneumonia -Continues to meet criteria with fever, leukocytosis, likely source pneumonia. -Chest x-ray indicates a right lower lobe infiltrate. -Urinalysis did not indicate any acute infection -Blood cultures are negative thus far -Obtain sputum culture, influenza testing, Legionella, strep pneumo testing -continued on antibiotics for healthcare associated pneumonia and non-ICU patients to include Zosyn, start Zithromax Acute kidney injury suspect secondary to dehydration and vomiting. Resolved -Patient continued on IV fluids -Continue monitor renal function -Avoid nephrotoxins Recent CVA 3 weeks ago -Head CT was done and reviewed showing chronic small vessel ischemic and atrophic changes, old infarctions on the right not changed. -Records from [facility] [place] have been requested -Physical therapy following the patient, recommending rehab, however patient does have home health care physical therapy already in place -Patient is on aspirin at home, continue. -Speech therapy consulted and recommended pured diet History of CAD with [place], chronic: -Patient is asymptomatic -EKG were performed and indicated sinus rhythm with first-degree AV block, controlled heart rate. History of dementia, chronic: -Continue monitor neurological function -Patient is on gabapentin and medical marijuana. Patient needs to follow-up upon discharge with her outpatient physicians for possible adjustment Chronic pain: -Patient's home medications oxycodone and Robaxin have been continued Chronic smoking patient -Patient counseled on cessation -Nicotine patch was ordered DVT prophylaxis: -Sequential compression devices -Subcutaneous heparin Discharge Planning: Discharge planning in 24-48 hours depending on patient's response to treatment, if patient remains afebrile.
[2018-05-14] MEDS: Heparin - SQ 10,000 UNITS/ML Vial SQ SCH ×2 (10:59→21:51)
[2018-05-14] MEDS ORDERED: Azithromycin Inj 500 MG in Sodium Chlor 0.9% Inj 250 ML IV.SIG SCH (11:00)
--- NOTE | 2018-05-14 12:42 | P.DCO ---
- Physical Therapy Order: Evaluate and treat, Improve ambulation, Strength and gait training - Occupational Therapy Order: Evaluate and treat, Improve ADL, Gross motor coordination, Fine motor coordination - Home Health Nursing Order: Medical education, Signs/symptoms of disease process, Nursing assessment with vital signs - Rivet Tester Order: To evaluate: Living conditions/environment, Support services Order: To provide: Long range planning, Community services - Certification I have seen patient Maria Fernanda Alfredo on 05/14/18. My clinical findings support the need for the requested home health care services because: Deconditioned with increased weakness, Limited ability to care for self I certify that my clinical findings support that this patient is homebound because: Unsteady gait/balance, Unsafe to leave home unassisted
[2018-05-14] MEDS: Temazepam 15 MG Capsule PO PRN (21:48)
[2018-05-15] MEDS: Piperacil/Tazo 4.5 GM Premix 4.5 GM/100 ML BAG IV.SIG SCH ×6 (03:12→22:10)
[2018-05-15] MEDS: Sod Chloride 0.9% Inj 1,000 ML IV.CONT SCH ×3 (03:14→23:34)
[2018-05-15 05:48] LABS: Baso % (Auto) 0.5 % (0.0-2.0); Eos # (Auto) 0.2 th/mm3 (0.0-0.4); Eos % (Auto) 2.3 % (0.0-4.0); Hematocrit 33.9 % (35.0-46.0); Hemoglobin 11.1 gm/dL (11.6-15.3); Lymph # (Auto) 1.3 th/mm3 (1.0-4.8); Lymph % (Auto) 16.8 % (9.0-44.0); Mean Corpuscular HGB Conc 32.8 % (32.0-36.0); Mean Corpuscular Hemoglobin 30.1 pg (27.0-34.0); Mean Corpuscular Volume 91.7 fL (80.0-100.0); Mean Platelet Volume 8.4 fL (7.0-11.0); Mono # (Auto) 0.8 th/mm3 (0.0-0.9); Mono % (Auto) 10.5 % (0.0-8.0); Neut # (Auto) 5.2 th/mm3 (1.8-7.7); Neut % (Auto) 69.9 % (16.0-70.0); Platelet Count 197 th/mm3 (150-450); Red Blood Count 3.69 mil/mm3 (4.00-5.30); Red Cell Distribution Width 12.5 % (11.6-17.2); White Blood Count 7.6 th/mm3 (4.0-11.0)
[2018-05-15 05:59] LABS: Chloride 109 meq/L (98-107); Potassium 3.1 meq/L (3.5-5.1); Sodium 142 meq/L (136-145)
[2018-05-15 06:02] LABS: Calcium 8.7 mg/dL (8.5-10.1)
[2018-05-15 06:03] LABS: Anion Gap 8 meq/L (5-15); Blood Urea Nitrogen 7 mg/dL (7-18); Carbon Dioxide 24.8 meq/L (21.0-32.0); Glucose,Random 94 mg/dL (74-106)
[2018-05-15 06:06] LABS: Glomerular Filtration Rate Greater Than 89 mL/min (>89)
[2018-05-15] MEDS: Senna/Docusate Sodium 8.6/50 MG Tablet PO SCH ×2 (08:47→22:09)
[2018-05-15] MEDS: Gabapentin 300 MG Capsule PO SCH ×3 (08:48→18:22)
[2018-05-15] MEDS: Folic Acid 1 MG Tablet PO SCH (08:48)
[2018-05-15] MEDS: Methocarbamol 500 MG Tablet PO SCH ×3 (08:49→18:22)
[2018-05-15] MEDS: Heparin - SQ 10,000 UNITS/ML Vial SQ SCH ×2 (08:50→22:08)
--- NOTE | 2018-05-15 11:31 | P.DS ---
Date of admission: 05/13/18 09:37 Primary care physician: Yusuf Hummel MD Attending physician on discharge: Debby Smith Anticipated date of discharge: 05/15/18 Brief History from admission: This is a 73-year-old female patient with a known medical history of dementia, recent CVA 3 weeks ago, CAD with history of RI who presented to the ED with generalized weakness, vomiting and hallucinating for the past week. Patient is a poor historian, information obtained from caregiver, Nancy Vasquezuver. Supposedly patient was hospitalized at [facility] 3 weeks ago for CVA as well as UTI. Patient does have left-sided residual weakness secondary to stroke. It should also be noted that patient was diagnosed with bilateral pneumonia roughly 2 months ago during prior hospitalization and not during her recent hospitalization 3 weeks ago. Patient has been started on medical marijuana 4 months ago for pain as well opiates for many years. There are no reports of fever, although caregiver does state that patient had some chills as well as nonproductive cough and nausea yesterday afternoon. Upon presentation to the ED her blood pressure was 70/40. Patient also presented with mild leukocytosis, acute kidney injury and dehydration. Upon assessment today, patient is lying in bed in no apparent distress. She does not verbalize nor participate in conversation. Per caregiver, at baseline patient does have underlying dementia with severity waxing and waning by the day, and is usually able to carry on a conversation. Requesting records from recent hospitalization at [facility]. DS: Diagnosis - Discharge Diagnosis (1) Sepsis Status: Acute (2) History of CVA (cerebrovascular accident) Status: Acute (3) HCAP (healthcare-associated pneumonia) Status: Acute (4) Hypotension Status: Acute (5) ISIAH (acute kidney injury) Status: Acute DS: Medications - Discharge Medications Prescriptions: oxycodone 30 mg PO Q4-6H PRN #12 tab PRN Reason: Acute Pain DS: Summary Hospital Course: 73-year-old female with history of dementia, recent CVA 3 weeks ago, coronary artery disease with history of myocardial infarction who presented to the emergency department because of generalized weakness, vomiting and hallucinating. Patient does have a 24-hour caregiver at home. The patient had workup done emergency department and found to have a right lower lung infiltrate with febrile illness. Due to the patient's recent hospitalization could be secondary to healthcare associated pneumonia versus the patient having nausea and vomiting and could have aspiration pneumonia. The patient continued a fever during her stay in the hospital she has been fever free for over 24 hours. Patient presented with acute leukocytosis which has completely resolved. Patient does not have any significant respiratory complaints. Patient was admitted the hospital on Zosyn and Zithromax. Further workup was performed which did not indicate any other infectious source. Blood cultures have remained negative for 3 days, influenza testing was negative, pneumococcal and Legionella antigen were negative. Sputum culture was indicating moderate mixed dasha. Patient has clinically improved. It was discussed with patient's home care provider that they do not feel that she is able to continue at home. That she would benefit from short-term rehab due to the reasons. Case management was consulted and is arranging [facility] facility placement. Discharge planning once arrangements have been made. - Time Spent with Patient Total time spent providing and/or coordinating discharge services: - Quality: VTE Deep Vein Thrombosis/Pulmonary Embolism Present on Admission: No Exam Vital signs: Vital Signs 05/14/18 12:00 05/14/18 14:00 05/14/18 16:00 Temperature 98.4 F 98.2 F Pulse Rate 72 67 Respiratory Rate 16 18 16 Blood Pressure 164/71 H 151/69 H Pulse Oximetry 97 98 05/14/18 20:00 05/15/18 00:00 05/15/18 08:00 Temperature 98.3 F 97.1 F L 97.6 F Pulse Rate 77 77 69 Respiratory Rate 16 16 17 Blood Pressure 140/63 141/84 H 166/70 H Pulse Oximetry 96 96 95 Intake & Output 05/14/18 05/15/18 05/15/18 18:59 06:59 18:59 Intake Total 1450 / 1450 2160 / 2160 Output Total 3 / 3 Balance 1450 / 1450 2157 / 2157 Intake: IV 1450 / 1450 1200 / 1200 NS Inj 1,000 ML @ 100 mls/hr IV 1000 / 1000 1000 / 1000 .CONT .Q10H JESSA Rx#:[id number] Azithromycin Inj 500 MG In NS 250 / 250 Inj 250 ML @ 250 mls/hr IV.SIG Q24H JESSA Rx#:[id number] Zosyn 4.5 GM Premix 4.5 gm In 200 / 200 200 / 200 100 ml @ 200 mls/hr IV.SIG Q6H JESSA Rx#:[id number] Oral 960 / 960 Output: Urine 3 / 3 Other: # Voids 5 # Incontinent Voids 1 # Bowel Movements 1 Narrative: GENERAL: Well-developed, well-nourished, in no acute distress. alert and orientated HEENT: Head is normocephalic without any lesions or masses noted. Facial features patient with mild lip and facial droop. Eyes: Extraocular muscles are intact. Conjunctivae were clear. NECK: Supple without any masses. Trachea midline no deviation. No JVD, no bruits are appreciated CARDIAC: Regular rhythm, regular rate. S1/S2 are heard. No murmurs gallops or rubs. LUNGS: Clear to auscultation bilaterally. No wheeze, rhonchi or rales. No use of accessory muscles on inspiration or expiration. ABDOMEN: Soft, nontender. Nondistended. Bowel sounds heard in all 4 quadrants. No organomegaly or masses. Negative rebound, negative guarding EXTREMITIES: No edema, pulses are equal bilaterally. No cyanosis or clubbing NEUROLOGY: Mood and affect appear appropriate. Patient moving all extremities, does have slight weakness on the left compared to the right. Results Procedures completed during hospitalization: None Labs on day of discharge: Labs from last 24 hours 05/15/18 05/15/18 05:15 05:15 CBC w Diff Auto diff final WBC 7.6 RBC 3.69 L Hgb 11.1 L Hct 33.9 L MCV 91.7 MCH 30.1 MCHC 32.8 RDW 12.5 Plt Count 197 MPV 8.4 Neut % (Auto) 69.9 Lymph % (Auto) 16.8 Barry % (Auto) 10.5 H Eos % (Auto) 2.3 Baso % (Auto) 0.5 Neut # (Auto) 5.2 Lymph # (Auto) 1.3 Barry # (Auto) 0.8 Eos # (Auto) 0.2 Baso # (Auto) 0.0 WBC Differential . Differential Comment . Sodium 142 Potassium 3.1 L Chloride 109 H Carbon Dioxide 24.8 Anion Gap 8 BUN 7 Creatinine 0.54 Estimated GFR Greater than 89 Random Glucose 94 Calcium 8.7 Preliminary micro results at discharge 05/12/18 02:40 Aerobic Blood Culture - Preliminary Blood - Peripheral No growth in 3 days Anaerobic Blood Culture - Preliminary No growth in 3 days 05/12/18 02:45 Aerobic Blood Culture - Preliminary Blood - Peripheral No growth in 3 days - Impressions ITS Impressions Head CT 05/12/18 00:00 CONCLUSION: Chronic small vessel ischemic and atrophic changes, old infarctions on the right not changed. Chest X-Ray 05/12/18 00:54 CONCLUSION: 1. Mild patchy airspace disease in the medial right lower lung zone concerning for developing pneumonia in the appropriate clinical setting. Discharge Plan - Discharge Disposition Patient Disposition: 03 Discharge to SNF - Discharge Condition Condition: Stable - Discharge Order Discharge Orders: Discharge Order (Routine); Ordered 05/15/18 Ordered By: Daniel Beard - Discharge Details Anticipated Discharge Date: 05/15/18 - Physicians Team Primary Care Provider: Yusuf Hummel Attending Provider: Debby Smith Other Providers: [employer]
[2018-05-15] MEDS: Azithromycin 250 MG Tablet PO SCH (15:07)
[2018-05-16] MEDS: Piperacil/Tazo 4.5 GM Premix 4.5 GM/100 ML BAG IV.SIG SCH ×2 (05:23→08:17)
--- NOTE | 2018-05-16 07:54 | P.PN ---
Subjective Interval history: 73-year-old female who is seen and examined today for follow-up on pneumonia, history of recent CVA. Patient is doing well. Denies any new complaints. She is asking for coffee. Patient was discharged yesterday to residential facility. [facility] facility plans on picking patient up this morning. Vital signs are stable, patient afebrile Physical Exam Vital signs: Vital Signs 05/15/18 08:00 05/15/18 12:00 05/15/18 16:00 Temperature 97.6 F 96.5 F L 98.0 F Pulse Rate 69 72 75 Respiratory Rate 17 17 17 Blood Pressure 166/70 H 155/80 H 179/77 H Pulse Oximetry 95 95 97 05/15/18 20:00 05/16/18 00:00 Temperature 99 F 98.8 F Pulse Rate 70 70 Respiratory Rate 20 20 Blood Pressure 142/59 H 151/65 H Pulse Oximetry 99 98 Intake & Output 05/15/18 05/16/18 05/16/18 18:59 06:59 18:59 Intake Total 2019 1420 / 1420 Balance 2019 1420 / 1420 Weight 63 kg Intake: IV 1300 / 1300 1300 / 1300 NS Inj 1,000 ML @ 100 mls/hr IV 1000 / 1000 1000 / 1000 .CONT .Q10H JESSA Rx#:[id number] Zosyn 4.5 GM Premix 4.5 gm In 300 / 300 300 / 300 100 ml @ 200 mls/hr IV.SIG Q6H JESSA Rx#:[id number] Oral 720 / 720 120 / 120 Other: # Voids 5 3 Date of Last Bowel Movement 05/12/18 # Bowel Movements 0 Narrative: GENERAL: Well-developed, well-nourished, in no acute distress. alert and orientated HEENT: Head is normocephalic without any lesions or masses noted. Facial features patient with mild lip and facial droop. Eyes: Extraocular muscles are intact. Conjunctivae were clear. NECK: Supple without any masses. Trachea midline no deviation. No JVD, no bruits are appreciated CARDIAC: Regular rhythm, regular rate. S1/S2 are heard. No murmurs gallops or rubs. LUNGS: Clear to auscultation bilaterally. No wheeze, rhonchi or rales. No use of accessory muscles on inspiration or expiration. ABDOMEN: Soft, nontender. Nondistended. Bowel sounds heard in all 4 quadrants. No organomegaly or masses. Negative rebound, negative guarding EXTREMITIES: No edema, pulses are equal bilaterally. No cyanosis or clubbing NEUROLOGY: Mood and affect appear appropriate. Patient moving all extremities, does have slight weakness on the left compared to the right. - Urinary Catheter Management Indwelling Urethral Catheter Cath placed during this visit: yes, but has since been removed by the nurse Reason for continuing: Acute urinary retention Insertion date: 05/12/18 Insertion time: 12:05 Removal date: 05/13/18 Removal time: 09:33 Results - Labs CBC & Chem 7: 05/15/18 05:15 05/15/18 05:15 Microbiology 05/14/18 12:20 Sputum - Expectorated Sputum Gram Stain - Final 05/14/18 12:20 Sputum - Expectorated Sputum Sputum Culture - Preliminary Heavy growth normal respiratory dasha at 24 hours 05/12/18 02:40 Blood - Peripheral Aerobic Blood Culture - Preliminary No growth in 3 days 05/12/18 02:40 Blood - Peripheral Anaerobic Blood Culture - Preliminary No growth in 3 days 05/12/18 02:45 Blood - Peripheral Aerobic Blood Culture - Preliminary No growth in 3 days 05/12/18 02:45 Blood - Peripheral Anaerobic Blood Culture - Final QNS - See aerobic report. 05/14/18 13:03 Urine - Catheterized Urine Streptococcus pneumoniae Antigen ( M - Final Presumptive negative for streptococcus pneumoniae antigen, suggesting no current or recent infection. Infection due to Streptococcus pneumoniae cannot be ruled out since the antigen present in the sample may be below the detection limit of the test. 05/14/18 13:03 Urine - Clean Catch Urine Legionella Antigen - Final Presumptive negative for Legionella pneumophila serogroup 1 antigen in urine, suggesting no recent or recurrent infection. Infection due to Legionella cannot be ruled out since other serogroups and species may cause disease, antigen may not be present in urine in early infection, and the level of antigen present in the urine may be below the detection limit of the test. - Procedures None Assessment and Plan - Assessment (1) Sepsis Code(s): A41.9 - Sepsis, unspecified organism Status: Acute (2) History of CVA (cerebrovascular accident) Code(s): Z86.73 - Personal history of transient ischemic attack (TIA), and cerebral infarction without residual deficits Status: Acute (3) HCAP (healthcare-associated pneumonia) Code(s): J18.9 - Pneumonia, unspecified organism Status: Acute (4) Hypotension Code(s): I95.9 - Hypotension, unspecified Status: Acute (5) ISIAH (acute kidney injury) Code(s): N17.9 - Acute kidney failure, unspecified Status: Acute - Plan Sepsis Healthcare associated pneumonia versus aspiration pneumonia -Continues to meet criteria with fever, leukocytosis, likely source pneumonia. -Chest x-ray indicates a right lower lobe infiltrate. -Urinalysis did not indicate any acute infection -Blood cultures are negative thus far -Obtain sputum culture, influenza testing, Legionella, strep pneumo testing -continued on antibiotics for healthcare associated pneumonia and non-ICU patients to include Zosyn, Zithromax Acute kidney injury suspect secondary to dehydration and vomiting. Resolved -Patient continued on IV fluids -Continue monitor renal function -Avoid nephrotoxins Recent CVA 3 weeks ago -Head CT was done and reviewed showing chronic small vessel ischemic and atrophic changes, old infarctions on the right not changed. -Records from [facility] have been requested -Physical therapy following the patient, recommending rehab, however patient does have home health care physical therapy already in place -Patient is on aspirin at home, continue. -Speech therapy consulted and recommended pured diet History of CAD with [place], chronic: -Patient is asymptomatic -EKG were performed and indicated sinus rhythm with first-degree AV block, controlled heart rate. History of dementia, chronic: -Continue monitor neurological function -Patient is on gabapentin and medical marijuana. Patient needs to follow-up upon discharge with her outpatient physicians for possible adjustment Chronic pain: -Patient's home medications oxycodone and Robaxin have been continued Chronic smoking patient -Patient counseled on cessation -Nicotine patch was ordered DVT prophylaxis: -Sequential compression devices -Subcutaneous heparin Discharge Planning: Awaiting residential facility to pick the patient up
[2018-05-16] MEDS: Gabapentin 300 MG Capsule PO SCH ×2 (08:16→13:09)
[2018-05-16] MEDS: Folic Acid 1 MG Tablet PO SCH (08:16)
[2018-05-16] MEDS: Methocarbamol 500 MG Tablet PO SCH ×2 (08:16→13:09)
[2018-05-16] MEDS: Senna/Docusate Sodium 8.6/50 MG Tablet PO SCH (08:16)
[2018-05-16] MEDS: Heparin - SQ 10,000 UNITS/ML Vial SQ SCH (08:17)
[2018-05-16] MEDS: Azithromycin 250 MG Tablet PO SCH (10:43)
[2018-05-16] MEDS: Sod Chloride 0.9% Inj 1,000 ML IV.CONT SCH (11:23)
== END 2018-05-16 14:05 ==
LOC: PHED 00:45 → PHEDA 00:45 → PH3 04:00
PROVIDERS: ADMIT Hospitalist; ATTEND Hospitalist